=== PATIENT | female | born 1995 ===

== ENCOUNTER 2017-07-13 23:33 | Emergency (ER) | payer SELFPAY ==
[2017-07-13 23:45] VITALS: BP 126/72; PULSE 73; RESP 16; TEMP 98.4; O2SAT 100
--- NOTE | 2017-07-14 01:04 | C.PDOC ---
History Of Present Illness 22 year old female presents to the ER after she got her right thumb caught in a vault door at work. Denies weakness or numbness. Time Seen by Provider: 07/13/17 23:50 Chief Complaint (Nursing): Upper Extremity Problem/Injury History Per: Patient History/Exam Limitations: no limitations Onset/Duration Of Symptoms: Hrs Current Symptoms Are (Timing): Still Present Exacerbating Factor(s): Strenuous Use Of Affected Area Recent travel outside of the [place]: No Past Medical History Reviewed: Historical Data, Nursing Documentation, Vital Signs Vital Signs: Last Vital Signs Temp 98.4 F 07/13/17 23:39 Pulse 73 07/13/17 23:39 Resp 16 07/13/17 23:39 BP 126/72 07/13/17 23:39 Pulse Ox 100 07/14/17 03:16 - Medical History PMH: No Chronic Diseases Family History: States: Unknown Family Hx - Social History Hx Alcohol Use: No Hx Substance Use: No - Immunization History Hx Influenza Vaccination: No Hx Pneumococcal Vaccination: No Review Of Systems Musculoskeletal: Positive for: Hand Pain Neurological: Negative for: Weakness, Numbness Physical Exam - Physical Exam Appears: Non-toxic, No Acute Distress Skin: Warm, Dry Head: Atraumatic, Normacephalic Eye(s): bilateral: Normal Inspection Extremity: Capillary Refill (<2 seconds), No Deformity, No Swelling (of right thumb), Other (small subungual hematoma to base of nail of right thumb(< 1/3). ROM of thumb causes pain.) Pulses: Left Radial: Normal, Right Radial: Normal Neurological/Psych: Oriented x3, Normal Speech, Normal Motor, Normal Sensation ED Course And Treatment O2 Sat by Pulse Oximetry: 100 (Room air) Pulse Ox Interpretation: Normal - Other Rad Right Thumb x-ray X-Ray: Interpreted by Me, Viewed By Me Interpretation: No acute fractures or dislocations. Progress Note: Right thumb x-ray ordered, results were negative. Motrin administered and ice pack applied. Patient reports improvement of pain and is resting comfortably in no acute distress. Will discharge home with Rx and instructions to follow up with PMD for further evaluation or return to ER if symptoms worsen. 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 - Scribe Statement The provider has reviewed the documentation as recorded by the Scribe Sam Clark All medical record entries made by the Ayseibailyn were at my direction and personally dictated by me. I have reviewed the chart and agree that the record accurately reflects my personal performance of the history, physical exam, medical decision making, and the department course for this patient. I have also personally directed, reviewed, and agree with the discharge instructions and disposition.
--- NOTE | 2017-07-14 08:07 | RAD ---
PROCEDURE: Right Thumb radiographs. HISTORY: r/o f COMPARISON: None. TECHNIQUE: AP radiograph of the right hand, as well as spot oblique and lateral images of thumb were obtained. FINDINGS: RIGHT THUMB: Normal right thumb, without fracture or focal lesion. Remainder of the right hand (as seen on the AP view) grossly unremarkable. JOINTS: Normal. SOFT TISSUES: Normal. OTHER FINDINGS: None. IMPRESSION: Normal right thumb radiographs.
== END 2017-07-14 01:09 | disposition home or self-care (01) ==
LOC: C.ER 23:33
DX: S60.111A Contusion of right thumb with damage to nail, initial encounter (principal); W23.0XXA Caught, crushed, jammed, or pinched between moving objects, initial encounter; Y92.89 Other specified places as the place of occurrence of the external cause; Y99.0 Civilian activity done for income or pay

== ENCOUNTER 2017-08-14 15:48 | Emergency (ER) | payer OTHER, MEDICAID ==
[2017-08-14 16:48] VITALS: BMI 32.0
[2017-08-14 16:55] VITALS: TEMP 98.5
[2017-08-14 17:52] LABS: HCG,QUALITATIVE URINE NEGATIVE (NEGATIVE)
[2017-08-14 17:55] LABS: SQUAMOUS EPITHIAL 8 /hpf (0-5); URINE BACTERIA RARE (<OCC); URINE BILIRUBIN NEGATIVE (NEGATIVE); URINE BLOOD 1+ (NEGATIVE); URINE CLARITY Hazy (Clear); URINE COLOR Yellow (YELLOW); URINE GLUCOSE (UA) NORMAL (Normal); URINE LEUKOCYTE ESTERASE NEG Leu/uL (Negative); URINE NITRATE NEGATIVE (NEGATIVE); URINE PROTEIN NEGATIVE (NEGATIVE); URINE UROBILINOGEN NORMAL mg/dL (0.2-1.0)
--- NOTE | 2017-08-14 17:56 | C.PDOC ---
History Of Present Illness <Bella Jay - Last Filed: 08/14/17 18:53> <Good Calvillo DO - Last Filed: 08/14/17 23:17> CC:"pelvic pain" HPI: 22 year old female with no past medical history presents to the ED with pelvic pain. Patient states the pain started 2 days ago and it comes and goes. She states the pain is a cramping pain and currently an 8/10. Patient states she has not taken any medication for the pain. Patient also states she has noticed some blood in her urine. She denies seeing clots in her urine. She states she had a fever last night. In addition she has had vaginal odor, vaginal itching and increase in urinary frequency. She denies pain during urination. She states her FDLP 08/05/17. She denies being sexually active or having an STD in the past. 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 denies: Nausea, Vomiting , Diarrhea, Chest Pain, Constipation Alleviating Factors: None <Bella Jay - Last Filed: 08/14/17 18:53> <Good Calvillo DO - Last Filed: 08/14/17 23:17> Chief Complaint (Nursing): Female Genitourinary Past Medical History - Medical History PMH: No Chronic Diseases Family History: States: Unknown Family Hx - Social History Hx Alcohol Use: No Hx Substance Use: No - Immunization History Hx Tetanus Toxoid Vaccination: No Hx Influenza Vaccination: No Hx Pneumococcal Vaccination: No <Bella Jay - Last Filed: 08/14/17 18:53> Vital Signs: Last Vital Signs Temp 98.5 F 08/14/17 16:51 Pulse 78 08/14/17 19:03 Resp 16 08/14/17 19:03 BP 119/78 08/14/17 19:03 Pulse Ox 98 08/14/17 19:03 Review Of Systems Constitutional: Positive for: Fever, Chills Cardiovascular: Negative for: Chest Pain, Palpitations Respiratory: Negative for: Cough, Shortness of Breath Gastrointestinal: Negative for: Nausea, Vomiting, Abdominal Pain Genitourinary: Positive for: Frequency, Hematuria, Pelvic Pain, Other (vaginal odor; vaginal itching ). Negative for: Dysuria, Vaginal Discharge, Vaginal Bleeding <Bella Jay - Last Filed: 08/14/17 18:53> Physical Exam - Physical Exam Appears: Well, No Acute Distress Skin: Normal Color Head: Atraumatic, Normacephalic Eye(s): bilateral: Normal Inspection, PERRL, EOMI Oral Mucosa: Moist Cardiovascular: Rhythm Regular, No Murmur Respiratory: Normal Breath Sounds, No Decreased Breath Sounds, No Accessory Muscle Use, No Stridor, No Wheezing Gastrointestinal/Abdominal: Bowel Sounds (normal), Soft, Tenderness (pelvic tenderness ), No Distention, No Guarding Neurological/Psych: Oriented x3, Normal Speech, Normal Cognition <Bella Jay - Last Filed: 08/14/17 18:53> ED Course And Treatment - Laboratory Results Result Diagrams: 08/14/17 18:05 08/14/17 18:05 O2 Sat by Pulse Oximetry: 100 <Bella Jay - Last Filed: 08/14/17 18:53> - Laboratory Results Result Diagrams: 08/14/17 18:05 08/14/17 18:05 <Good Calvillo DO - Last Filed: 08/14/17 23:17> Medical Decision Making <Bella Jay - Last Filed: 08/14/17 18:53> <Good Calvillo DO - Last Filed: 08/14/17 23:17> Medical Decision Making: Pelvic pain - CBC and CMP: WNL - UA negative New Medications: Metronidazole 500mg one table twice a day for 7 days Motrin 400mg every 6 hours as needed for pain. Please follow up with your primary care doctor in 1-2 weeks. Return to the ED if symptoms return or worsen. (Bella Jay) Disposition Discussed With : Good Calvillo DO - Disposition Disposition Time: 18:56 <Bella Jay - Last Filed: 08/14/17 18:53> - Disposition Disposition Time: 18:30 <Good Calvillo DO - Last Filed: 08/14/17 23:17> - Disposition Referrals: [facility], [Non-Staff] - Disposition: HOME/ ROUTINE Condition: GOOD Additional Instructions: Thank you for letting us take care of you today. The emergency medical care you received today was directed at your acute symptoms. If you were prescribed any medication, please fill it and take as directed. It may take several days for your symptoms to resolve. Return to the Emergency Department if your symptoms worsen, do not improve, or if you have any other problems. Please contact your doctor or call one of the physicians/clinics you have been referred to that are listed on the Patient Visit Information form that is included in your discharge packet. Bring any paperwork you were given at discharge with you along with any medications you are taking to your follow up visit. Our treatment cannot replace ongoing medical care by a primary care provider (PCP) outside of the emergency department. Thank you for allowing the [facility] team to be part of your care today. Metronidazole 500mg one table twice a day for 7 days Motrin 400mg every 6 hours as needed for pain. Please follow up with your primary care doctor in 1-2 weeks. Return to the ED if symptoms return or worsen. 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 / has examined the patient and agrees with the treatment plan. <Bella Jay - Last Filed: 08/14/17 18:53>
[2017-08-14 18:09] LABS: BASO % 0.3 % (0.0-2.0); EOS # 0.3 K/uL (0.0-0.7); EOS % 2.9 % (0.0-4.0); HEMOGLOBIN 12.8 g/dL (11.0-16.0); LYMPH # 3.5 K/uL (1.0-4.3); LYMPH % 32.4 % (20.0-40.0); MEAN CORPUSCULAR HEMOGLOBIN 27.7 pg (27.0-31.0); MEAN CORPUSCULAR HGB CONC 34.2 g/dL (33.0-37.0); MEAN PLATELET VOLUME 6.9 fL (7.2-11.7); MONO # 0.7 K/uL (0.0-0.8); MONO % 6.2 % (0.0-10.0); NEUT # 6.4 K/uL (1.8-7.0); NEUT % 58.2 % (50.0-75.0); RBC 4.62 Mil/uL (3.80-5.20); RED CELL DISTRIBUTION WIDTH 13.7 % (11.5-14.5); WHITE BLOOD COUNT 10.9 K/uL (4.8-10.8)
[2017-08-14 18:21] LABS: ALT/SGPT 70 U/L (9-52); AST/SGOT 39 U/L (14-36); BLOOD UREA NITROGEN 11 mg/dL (7-17); CALCIUM 8.8 mg/dl (8.6-10.4); GFR AFRICAN-AMERICAN > 60; GFR NON-AFRICAN AMERICAN > 60; LIPASE 118 U/L (23-300)
[2017-08-14 19:04] VITALS: BP 119/78; PULSE 78; RESP 16; O2SAT 98
== END 2017-08-14 19:03 | disposition home or self-care (01) ==
LOC: C.ER 15:48
DX: N76.0 Acute vaginitis (principal)

== ENCOUNTER 2017-10-25 21:44 | Emergency (ER) | payer MEDICAID ==
[2017-10-25 21:44] VITALS: BMI 32.0
[2017-10-25 22:01] VITALS: RESP 16
[2017-10-25 22:15] LABS: HCG,QUALITATIVE URINE NEGATIVE (NEGATIVE)
[2017-10-25 22:16] LABS: URINE BILIRUBIN NEGATIVE (NEGATIVE); URINE BLOOD 1+ (NEGATIVE); URINE CLARITY Clear (Clear); URINE COLOR Straw (YELLOW); URINE GLUCOSE (UA) NORMAL (Normal); URINE LEUKOCYTE ESTERASE NEG Leu/uL (Negative); URINE PROTEIN NEGATIVE (NEGATIVE); URINE UROBILINOGEN NORMAL mg/dL (0.2-1.0)
[2017-10-25 22:19] LABS: SQUAMOUS EPITHIAL 2 /hpf (0-5)
[2017-10-25] MEDS ORDERED: Alum-Mag Hydrox-Simethicone Susp (30 mL) PO STA (22:22)
--- NOTE | 2017-10-25 22:44 | C.PDOC ---
History Of Present Illness 22 year old female presents to the ED for evaluation of vague abdominal discomfort, episode of vomiting and two loose stools which began today. Patient states she ate from [employer] yesterday. Patient was evaluated in this ED on 08/14 and underwent workup for vaginal discomfort, which she states has since resolved. Patient denies fever, chills, and nausea at this time. Time Seen by Provider: 10/25/17 22:09 Chief Complaint (Nursing): Abdominal Pain History Per: Patient History/Exam Limitations: no limitations Onset/Duration Of Symptoms: Hrs Current Symptoms Are (Timing): Still Present Location Of Pain/Discomfort: Diffuse Quality Of Discomfort: "Pain" Associated Symptoms: Vomiting, Other (loose stools ). denies: Fever, Chills Last Bowel Movement: Today Additional History Per: Patient Abnormal Vaginal Bleeding: No Past Medical History Reviewed: Historical Data, Nursing Documentation, Vital Signs Vital Signs: Last Vital Signs Temp 98.1 F 10/25/17 21:59 Pulse 58 L 10/25/17 21:59 Resp 16 10/25/17 21:59 BP 136/82 10/25/17 21:59 Pulse Ox 99 10/25/17 22:47 - Medical History PMH: No Chronic Diseases Surgical History: No Surg Hx Family History: States: Unknown Family Hx - Social History Hx Alcohol Use: No Hx Substance Use: No - Immunization History Hx Tetanus Toxoid Vaccination: No Hx Influenza Vaccination: No Hx Pneumococcal Vaccination: No Review Of Systems Constitutional: Negative for: Fever, Chills Gastrointestinal: Positive for: Vomiting, Abdominal Pain, Other (loose stools ) Physical Exam - Physical Exam Appears: Non-toxic, No Acute Distress, Other (obese [place]an female ) Skin: Normal Color, Warm, Dry Head: Atraumatic, Normacephalic Eye(s): bilateral: Normal Inspection Oral Mucosa: Moist Neck: Supple Chest: Symmetrical, No Deformity, No Tenderness Cardiovascular: Rhythm Regular, No Murmur Respiratory: Normal Breath Sounds, No Rales, No Rhonchi, No Wheezing Gastrointestinal/Abdominal: Soft, No Tenderness, No Guarding, No Rebound Extremity: Normal ROM, Capillary Refill (less than 2 seconds ) Neurological/Psych: Oriented x3, Normal Speech, Normal Cognition ED Course And Treatment - Laboratory Results Result Diagrams: 10/26/17 00:10/26/17 00:16 Lab Interpretation: Normal (ua neg.) Urine POC: Negative O2 Sat by Pulse Oximetry: 99 (on RA) Pulse Ox Interpretation: Normal - Radiology CXR: Interpreted by Me CXR Interpretation: Yes: No Acute Disease - Other Rad abd x 2 X-Ray: Interpreted by Me (+FOS) Progress Note: Urinalysis ordered and reviewed. Maalox PO administered. Reevaluation Time: 00:43 Reassessment Condition: Improved Medical Decision Making Medical Decision Making: diet based mostly on fried food and bangladeshi food. +FOS c/w constipation "diarrhea" with full colon, more likely abd colic of constipation. Disposition Doctor Will See Patient In The: Office Counseled Patient/Family Regarding: Studies Performed, Diagnosis - Disposition Disposition: HOME/ ROUTINE Disposition Time: 00:44 Condition: GOOD Forms: [facility] (Singaporean) - Clinical Impression Clinical Impression: Colicky periumbilical abdominal pain - Scribe Statement The provider has reviewed the documentation as recorded by the Scribe (Consuelo Saez) Provider Attestation: All medical record entries made by the Scribe were at my direction and personally dictated by me. I have reviewed the chart and agree that the record accurately reflects my personal performance of the history, physical exam, medical decision making, and the department course for this patient. I have also personally directed, reviewed, and agree with the discharge instructions and disposition.
[2017-10-25] MEDS ORDERED: Sodium Chloride 0.9% 1,000 ML IV ONE (22:55)
[2017-10-25] MEDS ORDERED: Sodium Chloride 0.9% 1,000 ML ONE (23:21)
[2017-10-25] MEDS ORDERED: Alum-Mag Hydrox-Simethicone Susp (30 mL) ONE (23:21)
[2017-10-26 00:27] LABS: BASO % 0.5 % (0.0-2.0); EOS # 0.3 K/uL (0.0-0.7); EOS % 2.7 % (0.0-4.0); HEMOGLOBIN 13.5 g/dL (11.0-16.0); LYMPH # 3.7 K/uL (1.0-4.3); LYMPH % 39.5 % (20.0-40.0); MEAN CELL VOLUME 81.1 fL (81.0-99.0); MEAN CORPUSCULAR HGB CONC 34.5 g/dL (33.0-37.0); MEAN PLATELET VOLUME 7.3 fL (7.2-11.7); MONO # 0.6 K/uL (0.0-0.8); MONO % 6.1 % (0.0-10.0); NEUT # 4.9 K/uL (1.8-7.0); NEUT % 51.2 % (50.0-75.0); NRBC % 0.1 % (0.0-2.0); RBC 4.84 Mil/uL (3.80-5.20); RED CELL DISTRIBUTION WIDTH 13.7 % (11.5-14.5); WHITE BLOOD COUNT 9.5 K/uL (4.8-10.8)
[2017-10-26 00:34] LABS: ALB/GLOB RATIO 0.9 (1.0-2.1); ALT/SGPT 61 U/L (9-52); AST/SGOT 33 U/L (14-36); BLOOD UREA NITROGEN 13 mg/dL (7-17); GFR AFRICAN-AMERICAN > 60; GFR NON-AFRICAN AMERICAN > 60; LIPASE 117 U/L (23-300)
[2017-10-26] MEDS ORDERED: Magnesium Citrate Oral SOL (300 ml) PO ONE (00:51)
[2017-10-26] MEDS ORDERED: Magnesium Citrate Oral SOL (300 ml) ONE (01:08)
[2017-10-26 01:13] VITALS: BP 124/79; PULSE 62; TEMP 98.2; O2SAT 98
--- NOTE | 2017-10-26 08:40 | RAD ---
PROCEDURE: Radiographs of the chest and abdomen (obstructive series) HISTORY: abd pain COMPARISON: No prior. TECHNIQUE: AP radiograph of the chest, with upright and supine radiographs of the abdomen. FINDINGS: CHEST: Lungs: Clear. Cardiovascular: Normal size heart. No pulmonary vascular congestion. Pleura: No pleural fluid. No pneumothorax. Other findings: None. ABDOMEN AND PELVIS: Bowel: Mild retained feces. No evidence of bowel obstruction. Free air: None. Bones: Unremarkable. Other findings: None. IMPRESSION: Mild retained feces. No evidence of bowel obstruction
== END 2017-10-26 01:13 | disposition home or self-care (01) ==
LOC: C.ER 21:44
DX: R10.33 Periumbilical pain (principal)
CPT/HCPCS: 74022; 80053; 81001; 83690; 84703; 85025; 96361; 96374; 99284; J1885; J7040

== ENCOUNTER 2017-11-01 21:09 | Emergency (ER) | payer MEDICAID ==
[2017-11-01 21:10] VITALS: BMI 32.0
--- NOTE | 2017-11-01 21:41 | C.PDOC ---
History Of Present Illness Patient presents with burning sensation in her chest, nausea and vomiting after eating some food from the [facility]. States the pain radiates into her left shoulder. No f/c. Also states that her menses is 2 months late. decreased po intake. Contrary to the initial triage note, patient denies any chest pain. Time Seen by Provider: 11/01/17 21:41 Chief Complaint (Nursing): Chest Pain History Per: Patient History/Exam Limitations: no limitations Onset/Duration Of Symptoms: Days (3) Current Symptoms Are (Timing): Still Present Context: Food Severity: Moderate Pain Scale Rating Of: 4 Quality: Burning, Aching Associated Symptoms: Nausea. denies: Dyspnea Exacerbating Factors: None Alleviating Factors: None Recent travel outside of the [place]: No Additional History Per: Patient, Family Past Medical History Reviewed: Historical Data, Nursing Documentation, Vital Signs Vital Signs: Last Vital Signs Temp 97.9 F 11/01/17 21:15 Pulse 98 H 11/01/17 21:15 Resp 20 11/01/17 21:15 BP 124/77 11/01/17 21:15 Pulse Ox 98 11/01/17 22:26 Family History: States: No Known Family Hx - Social History Hx Alcohol Use: No Hx Substance Use: No - Immunization History Hx Tetanus Toxoid Vaccination: No Hx Influenza Vaccination: No Hx Pneumococcal Vaccination: No Review Of Systems Constitutional: Negative for: Fever, Chills Eyes: Negative for: Redness ENT: Negative for: Throat Pain Cardiovascular: Negative for: Chest Pain Respiratory: Negative for: Shortness of Breath Gastrointestinal: Positive for: Nausea, Vomiting, Abdominal Pain Genitourinary: Negative for: Dysuria Musculoskeletal: Negative for: Back Pain Skin: Negative for: Rash Neurological: Negative for: Weakness Psych: Negative for: Anxiety Physical Exam - Physical Exam Appears: Non-toxic Skin: Warm, Dry Head: Normacephalic Eye(s): bilateral: Normal Inspection Oral Mucosa: Moist Neck: Supple Chest: Symmetrical Cardiovascular: Rhythm Regular Respiratory: No Rales, No Rhonchi, No Wheezing Gastrointestinal/Abdominal: Soft, Tenderness (diffuse), Distention, No Guarding , No Hernia Back: No CVA Tenderness Extremity: Normal ROM Extremity: Bilateral: Atraumatic Neurological/Psych: Oriented x3 Gait: Steady ED Course And Treatment - Laboratory Results Result Diagrams: 11/01/17 22:54 11/01/17 22:54 ECG: Interpreted By Me, Viewed By Me ECG Rhythm: Sinus Rhythm (98), Nonspecific Changes O2 Sat by Pulse Oximetry: 98 Pulse Ox Interpretation: Normal - Radiology CXR: Interpreted by Me, Viewed By Me CXR Interpretation: No: Infiltrates, Fracture, Pnemothorax Reevaluation Time: 00:22 Reassessment Condition: Improved Disposition Counseled Patient/Family Regarding: Studies Performed, Diagnosis, Need For Followup, Rx Given - Disposition Referrals: [facility] [Outside] [facility] [Outside] Disposition: HOME/ ROUTINE Disposition Time: 00:22 Condition: FAIR Additional Instructions: Please return if symptoms recur Prescriptions: Pantoprazole Sodium [Protonix] 40 mg PO DAILY #15 ect Instructions: Acid Reflux (Gastroesophageal Reflux Disease) in Adults Forms: [facility] (Cayman Islander) - Clinical Impression Clinical Impression: Abdominal pain, GERD (gastroesophageal reflux disease)
[2017-11-01] MEDS ORDERED: Sodium Chloride 0.9% 1,000 ML IV ONE (22:16)
[2017-11-01 22:57] LABS: BASO # 0.1 K/uL (0.0-0.2); BASO % 0.7 % (0.0-2.0); EOS # 0.6 K/uL (0.0-0.7); EOS % 4.9 % (0.0-4.0); HEMOGLOBIN 13.3 g/dL (11.0-16.0); LYMPH # 4.4 K/uL (1.0-4.3); LYMPH % 35.1 % (20.0-40.0); MEAN CELL VOLUME 82.2 fL (81.0-99.0); MEAN CORPUSCULAR HEMOGLOBIN 27.9 pg (27.0-31.0); MEAN PLATELET VOLUME 7.9 fL (7.2-11.7); MONO # 0.7 K/uL (0.0-0.8); MONO % 5.5 % (0.0-10.0); NEUT # 6.7 K/uL (1.8-7.0); NEUT % 53.8 % (50.0-75.0); NRBC % 0.1 % (0.0-2.0); RBC 4.76 Mil/uL (3.80-5.20); RED CELL DISTRIBUTION WIDTH 13.9 % (11.5-14.5); WHITE BLOOD COUNT 12.5 K/uL (4.8-10.8)
[2017-11-01 23:01] LABS: SQUAMOUS EPITHIAL 2 /hpf (0-5); URINE BILIRUBIN NEGATIVE (NEGATIVE); URINE BLOOD 2+ (NEGATIVE); URINE CLARITY Clear (Clear); URINE COLOR Yellow (YELLOW); URINE GLUCOSE (UA) NORMAL (Normal); URINE LEUKOCYTE ESTERASE NEG Leu/uL (Negative); URINE PROTEIN NEGATIVE (NEGATIVE); URINE UROBILINOGEN NORMAL mg/dL (0.2-1.0)
[2017-11-01 23:07] LABS: HCG,QUALITATIVE URINE NEGATIVE (NEGATIVE)
[2017-11-01] MEDS ORDERED: Sodium Chloride 0.9% 1,000 ML ONE (23:17)
[2017-11-01 23:22] LABS: ALB/GLOB RATIO 0.9 (1.0-2.1); ALT/SGPT 46 U/L (9-52); AST/SGOT 45 U/L (14-36); BLOOD UREA NITROGEN 14 mg/dL (7-17); CALCIUM 8.7 mg/dl (8.6-10.4); GFR AFRICAN-AMERICAN > 60; GFR NON-AFRICAN AMERICAN > 60; LIPASE 123 U/L (23-300)
[2017-11-02 00:49] VITALS: BP 105/71; PULSE 80; RESP 18; TEMP 98.2; O2SAT 99
--- NOTE | 2017-11-02 16:17 | CARD ---
APPROVED REPORT EKG Measurement Heart [id number] <Conclusion> Normal sinus rhythm Normal ECG
== END 2017-11-02 00:51 | disposition home or self-care (01) ==
LOC: C.ER 21:09
DX: K21.9 Gastro-esophageal reflux disease without esophagitis (principal); R10.9 Unspecified abdominal pain
CPT/HCPCS: 80053; 81001; 83690; 84703; 85025; 93005; 96361; 96374; 96375; 99284; J1885; J2405; J7040

== ENCOUNTER 2018-01-02 18:42 | Inpatient (IN) | payer MEDICAID ==
[2018-01-02 18:43] VITALS: BMI 32.0
--- NOTE | 2018-01-02 19:31 | C.PDOC ---
History Of Present Illness 22 year old female presents to the ED c/o sudden onset CP that started today after leaving from work. Patient also reports she has been feeling depressed for some time now due to some problems with life in general. Patient state she has not been sleeping well or eating. Patient reports having suicidal ideation with no current plan. Patient has attempted in the past tried cutting her wrists 2 months ago. Patient states she wishes not to go home because she thinks she might harm herself at home. Patient denies HI, hallucinations, SOB, fever, chills, nausea, vomit. Chief Complaint (Nursing): Chest Pain History Per: Patient History/Exam Limitations: no limitations Onset/Duration Of Symptoms: Hrs Current Symptoms Are (Timing): Still Present Quality: "Pain" Modifying Factors: None Exacerbating Factors: None Recent travel outside of the [place]: No Additional History Per: Patient Past Medical History Reviewed: Historical Data, Nursing Documentation, Vital Signs Vital Signs: Last Vital Signs Temp 98.5 F 01/02/18 19:31 Pulse 104 H 01/02/18 19:31 Resp 18 01/02/18 19:31 BP 113/63 01/02/18 19:31 Pulse Ox 96 01/02/18 21:28 - Medical History PMH: No Chronic Diseases Surgical History: No Surg Hx Family History: States: Unknown Family Hx - Social History Hx Alcohol Use: No Hx Substance Use: No - Immunization History Hx Tetanus Toxoid Vaccination: No Hx Influenza Vaccination: No Hx Pneumococcal Vaccination: No Review Of Systems Constitutional: Negative for: Fever, Chills Cardiovascular: Negative for: Chest Pain, Palpitations Respiratory: Negative for: Shortness of Breath Gastrointestinal: Negative for: Nausea, Vomiting Skin: Negative for: Rash Psych: Positive for: Depression, Suicidal ideation Physical Exam - Physical Exam Appears: Non-toxic, Other (crying, depressed affect) Skin: Normal Color, Warm, Dry Head: Atraumatic, Normacephalic Eye(s): bilateral: Normal Inspection Oral Mucosa: Moist Neck: Normal ROM, Supple Chest: Symmetrical Cardiovascular: Rhythm Regular Respiratory: Normal Breath Sounds, No Rales, No Rhonchi, No Wheezing Gastrointestinal/Abdominal: Soft, No Tenderness, No Guarding, No Rebound Extremity: Normal ROM, No Tenderness, No Swelling Neurological/Psych: Oriented x3, Normal Speech Gait: Steady ED Course And Treatment - Laboratory Results Result Diagrams: 01/02/18 20:26 01/02/18 20:26 ECG: Interpreted By Me ECG Rhythm: Sinus Rhythm ECG Interpretation: Normal, No Acute Changes Rate From EC (BPM) O2 Sat by Pulse Oximetry: 96 (ON RA) Pulse Ox Interpretation: Normal Medical Decision Making Medical Decision Making: Impression: depression, SI Plan: * Labs * Madai, toxicology negative * UA * Crisis evaluation Disposition - Disposition Disposition: HOSPITALIZED Disposition Time: 22:24 Condition: FAIR - Clinical Impression Clinical Impression: Suicidal ideation, Anxiety and depression - Scribe Statement The provider has reviewed the documentation as recorded by the Scribe James Thomason All medical record entries made by the Scribe were at my direction and personally dictated by me. I have reviewed the chart and agree that the record accurately reflects my personal performance of the history, physical exam, medical decision making, and the department course for this patient. I have also personally directed, reviewed, and agree with the discharge instructions and disposition.
[2018-01-02 20:36] LABS: EOS # 0.2 K/uL (0.0-0.7); HEMOGLOBIN 12.9 g/dL (11.0-16.0); NRBC % 0.1 % (0.0-2.0)
[2018-01-02 20:40] LABS: BASO % 0.4 % (0.0-2.0); EOS % 1.8 % (0.0-4.0); LYMPH # 3.1 K/uL (1.0-4.3); LYMPH % 32.9 % (20.0-40.0); MEAN CELL VOLUME 82.8 fL (81.0-99.0); MEAN CORPUSCULAR HEMOGLOBIN 27.1 pg (27.0-31.0); MEAN CORPUSCULAR HGB CONC 32.7 g/dL (33.0-37.0); MEAN PLATELET VOLUME 7.8 fL (7.2-11.7); MONO # 0.5 K/uL (0.0-0.8); MONO % 5.2 % (0.0-10.0); NEUT # 5.5 K/uL (1.8-7.0); NEUT % 59.7 % (50.0-75.0); RBC 4.76 Mil/uL (3.80-5.20); RED CELL DISTRIBUTION WIDTH 13.3 % (11.5-14.5); WHITE BLOOD COUNT 9.3 K/uL (4.8-10.8)
[2018-01-02 20:42] LABS: CALCIUM 8.8 mg/dl (8.6-10.4); GFR AFRICAN-AMERICAN > 60; GFR NON-AFRICAN AMERICAN > 60
[2018-01-02 20:43] LABS: SQUAMOUS EPITHIAL 12 /hpf (0-5); URINE BACTERIA RARE (<OCC); URINE BILIRUBIN NEGATIVE (NEGATIVE); URINE BLOOD 1+ (NEGATIVE); URINE CLARITY Hazy (Clear); URINE COLOR Yellow (YELLOW); URINE GLUCOSE (UA) NORMAL (Normal); URINE LEUKOCYTE ESTERASE 1+ Leu/uL (Negative); URINE PROTEIN NEGATIVE (NEGATIVE)
[2018-01-02 20:45] LABS: BARBITURATES, UR NEGATIVE (NEGATIVE); BENZODIAZEPINES, UR NEGATIVE (NEGATIVE); OPIATES, UR NEGATIVE (NEGATIVE); PHENCYCLIDINE, UR NEGATIVE (NEGATIVE)
[2018-01-02 21:05] LABS: ALBUMIN 4.3 g/dL (3.5-5.0); ALT/SGPT 67 U/L (9-52); AST/SGOT 51 U/L (14-36); BLOOD UREA NITROGEN 12 mg/dL (7-17)
--- NOTE | 2018-01-02 22:27 | PCM.BM ---
<Berenice Damon - Last Filed: 01/02/18 22:16> Treatment Plan Problems - Problems identified on initial assessmt Suicidal ideation Date Initiated: 01/02/18 Time Initiated: 22:35 Assessment reference: NA Status: Active Treatment assets and liabiliti Patient Assests: cooperative, ADL independent, good support system, negotiates basic needs - Milieu Protocol Maintain good personal hygiene: daily Encourage regular showers, daily Remind patient to perform daily oral care, daily Assist patient to perform ADL's Maintain personal safety: every shift Educate patient to report safety concerns to staff, every shift Monitor environment for contraband/sharps Medication safety: Monitor for expected outcome, potential side effects: every shift, Assess barriers to learning: every shift, Assess readiness for medication education: every shift <Claudia Marquez - Last Filed: 01/04/18 12:16> - Diagnosis (1) Anxiety and depression Status: Acute Interventions: 01/04/18 12:16 * Assess/adjust medications daily and /or as needed * See patient on an individual basis 7x/week to assess symptoms of depression * Monitor for side effects & effectiveness of medications * <Alanna Abarca - Last Filed: 01/04/18 17:07> Family Contact Family involvement: Patient does not wish Family/SO involvement Family contact: Patient declines to allow family contact at present - Goals for Treatment Patient goals for treatment: "I want to go to an outpatient program." Discharge/Continuing Care - Education Needs Education Needs: Patient Medication, Patient Diagnosis/Disease Process, Patient Coping Skills - Discharge Discharge Criteria: Free of Suicidal thoughts, Normal sleep pattern, Ability to care for self, Reduction of target symptoms Discharge to:: Home, With Family - Treatment Team Participation Discussed with Family/SO: No Was Patient/Family/SO present at Treatment Team Meeting: Yes
[2018-01-03 06:37] VITALS: RESP 20
--- NOTE | 2018-01-03 22:54 | PCM.PSYCH ---
Initial Psychiatric Evaluation - Initial Psychiatric Evaluation Type of Admission: Voluntary Legal Status: Capacity Current Medications: Active Medications Generic Name Dose Route Start Last Admin Trade Name Freq PRN Reason Stop Dose Admin Hydroxyzine HCl 50 mg 01/03/18 02:41 01/03/18 21:39 Atarax PO 50 mg Q8 PRN Administration Anxiety Pneumococcal Polyvalent Vaccine 0.5 ml 01/05/18 10:00 Pneumovax 23 Vaccine IM 01/05/18 10:01 .ONCE ONE Trazodone HCl 50 mg 01/03/18 02:40 01/03/18 21:39 Desyrel PO 50 mg HS PRN Administration Insomnia Past Psychiatric History - Past Psychiatric History Pertinent Medical Hx (Current Medical&Sleep Prob, Allergies): Allergies Allergy/AdvReac Type Severity Reaction Status Date / Time No Known Allergies Allergy Verified 11/01/17 21:27 No Known Home Med 01/02/18
[2018-01-04 06:14] VITALS: TEMP 97.7; O2SAT 100
[2018-01-04 16:01] VITALS: BP 125/78; PULSE 58
--- NOTE | 2018-01-05 05:33 | PCM.PYCHDC ---
Mental Status Examination - Mental Status Examination Orientation: Person, Place, Situation, Time Memory: Intact Mood: Neutral Affect: Constricted Speech: Soft Attention: WNL Concentration: WNL Association: WNL Fund of Knowledge: WNL Formal Thought Process: No Impairment Description of patient's judgement and insight: good, fair Psychotic Thoughts and Behaviors: denies any AVH Suicidal Ideation: No Current Homicidal Ideation?: No Discharge Summary - Discharge Note Consultations:: List each consultation separately and include: 1. Reason for request. 2. Findings. 3. Follow-up Summary of Hospital Course include:: 1. Description of specific treatment plan utilized for patients during their course of treatmen. 2. Summarize the time- course for resolution of acute symptoms and/or regressed behaviors. 3. Describe issues identified and worked on during hospitalization. 4. Describe medication utilized. 5. Describe medical problems identified and treated. 6. Reassessment of suicide risk - Diagnosis (1) Anxiety and depression Current Visit: Yes Status: Acute - Final Diagnosis (DSM 5) Condition upon Discharge: FAIR Disposition: HOME/ ROUTINE Prescriptions/Medication Reconciliation: Sertraline [Zoloft] 50 mg PO DAILY #30 tab traZODone [Desyrel] 50 mg PO HS PRN #30 tab PRN Reason: Insomnia - Smoking Cessation Smoking Cessation Medication prescribed: No - Antipsychotic Medications Pt discharged on 2 or more routine antipsychotic medications: No
--- NOTE | 2018-01-05 05:34 | PCM.PYCHPN ---
Psychiatric Progress Note - Psychiatric Progress Note Patient seen today, length of contact: 15 min Patient Chief Complaint: I am feeling fine.' Problems Identified/Issues Discussed: Patient seen and evaluated, chart reviewed and discussed with the nurse. She reports some improvement in her depressed mood, sleep and appetite. She denies any AVH or any paranoia. She spoke with her family and family is nichole for her to come back. Patient is compliant with medications and denies any side effects. Symptoms are improving but need more time to stabilize. Support and psychoeducation given. Medication Change: Yes (Zoloft) Medical Record Reviewed: Yes Mental Status Examination - Cognitive Function Orientation: Person, Place, Situation, Time Memory: Intact Attention: WNL Concentration: WNL Association: WNL Fund of Knowledge: Poor - Mood Mood: Anxious - Affect Affect: Constricted - Speech Speech: Soft - Formal Thought Process Formal Thought Process: No Impairment - Suicidal Ideation Suicidal Ideation: No - Homicidal Ideation Homicidal Ideation: No Goal/Treatment Plan - Goal/Treatment Plan Need for Continued Stay: Discharge may exacerbated symptoms Progress Toward Problem(s) and Goals/Treatment Plan: 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
[2018-01-05] MEDS ORDERED: Pneumococcal 23-Valent Vaccine IM ONE (10:00)
== END 2018-01-05 06:41 | disposition home or self-care (01) | DRG 430 ==
LOC: C.ER 18:42 → C.5E 21:38 → UNDOADMIN 21:38 → C.9E 21:38 → C.5E 22:28
PROC: GZHZZZZ Group Psychotherapy (ICD-10-PCS; principal; 2018-01-02)
PROC: GZ58ZZZ Individual Psychotherapy, Cognitive-Behavioral (ICD-10-PCS; 2018-01-02)
PROC: GZ56ZZZ Individual Psychotherapy, Supportive (ICD-10-PCS; 2018-01-02)
DX: F33.2 Major depressive disorder, recurrent severe without psychotic features (principal); F41.9 Anxiety disorder, unspecified; R45.851 Suicidal ideations; G47.00 Insomnia, unspecified

== ENCOUNTER 2018-01-28 16:26 | Emergency (ER) | payer MEDICAID ==
[2018-01-28 16:36] VITALS: BMI 32.9
[2018-01-28 16:40] VITALS: BP 115/77; PULSE 71; RESP 18; TEMP 98; O2SAT 97
--- NOTE | 2018-01-28 16:53 | C.PDOC ---
History Of Present Illness 22-year-old female presents to the ER with burn injury to the right forearm and a twisted left ankle that occurred a few hours ago. She states that the burn occurred due to an oil splash at work and the twisted ankle occurred on her way to the hospital when waiting for a lyft. She denies any radiating pain, numbness or weakness. Time Seen by Provider: 01/28/18 16:41 Chief Complaint (Nursing): Abnormal Skin Integrity History Per: Patient History/Exam Limitations: no limitations Onset/Duration Of Symptoms: Hrs Current Symptoms Are (Timing): Still Present Recent travel outside of the [place]: Yes ([place]) Past Medical History Vital Signs: Last Vital Signs Temp 98 F 01/28/18 16:36 Pulse 71 01/28/18 16:36 Resp 18 01/28/18 16:36 BP 115/77 01/28/18 16:36 Pulse Ox 97 01/28/18 16:36 - Medical History PMH: Anxiety, Depression Denies: Diabetes, Hepatitis, HIV, HTN, Seizures, Sexually Transmitted Disease - [facility] Procedures GROUP PSYCHOTHERAPY (01/02/18) INDIVIDUAL PSYCHOTHERAPY, COGNITIVE-BEHAVIORAL (01/02/18) INDIVIDUAL PSYCHOTHERAPY, SUPPORTIVE (01/02/18) Family History: States: Unknown Family Hx - Social History Hx Alcohol Use: No Hx Substance Use: No - Immunization History Hx Tetanus Toxoid Vaccination: No Hx Influenza Vaccination: No Hx Pneumococcal Vaccination: No Review Of Systems Constitutional: Negative for: Fever Gastrointestinal: Negative for: Nausea, Vomiting Musculoskeletal: Positive for: Arm Pain (right forearm (burn)), Foot Pain ( nonfocal left ank/foot) Physical Exam - Physical Exam Appears: Well, Non-toxic, No Acute Distress Skin: Warm, Dry, No Rash Head: Atraumatic Eye(s): bilateral: Normal Inspection Ear(s): Bilateral: Normal Oral Mucosa: Moist Neck: Normal ROM Chest: Symmetrical Cardiovascular: Rhythm Regular, No Murmur Respiratory: Normal Breath Sounds, No Rales, No Rhonchi, No Wheezing Gastrointestinal/Abdominal: Bowel Sounds, Soft, No Tenderness, No Guarding Extremity: Bilateral: Atraumatic, Normal Color And Temperature, Normal ROM Pulses: Left Radial: Normal, Right Radial: Normal Neurological/Psych: Oriented x3, Normal Speech Gait: Steady ED Course And Treatment O2 Sat by Pulse Oximetry: 97 (RA) Pulse Ox Interpretation: Normal Disposition - Disposition Forms: [facility] (Croatian)
--- NOTE | 2018-01-28 17:01 | C.PDOC ---
History Of Present Illness 22-year-old female presents to the ER with burn injury to the right forearm that occurred 1 hour prior to arrival. She states that the burn occurred due to an oil splash at work. Patient applied cold water with minimal relief. She then accidentally twisted her left ankle on her way to the hospital when waiting for a lyft. She denies any radiating pain, numbness or weakness. Time Seen by Provider: 01/28/18 16:41 Chief Complaint (Nursing): Abnormal Skin Integrity History Per: Patient History/Exam Limitations: no limitations Onset/Duration Of Symptoms: Hrs Current Symptoms Are (Timing): Still Present Past Medical History Reviewed: Historical Data, Nursing Documentation, Vital Signs Vital Signs: Last Vital Signs Temp 98 F 01/28/18 16:36 Pulse 71 01/28/18 16:36 Resp 18 01/28/18 17:30 BP 115/77 01/28/18 16:36 Pulse Ox 97 01/28/18 17:11 - Medical History PMH: Anxiety, Depression Denies: Diabetes, Hepatitis, HIV, HTN, Seizures, Sexually Transmitted Disease - [facility] Procedures GROUP PSYCHOTHERAPY (01/02/18) INDIVIDUAL PSYCHOTHERAPY, COGNITIVE-BEHAVIORAL (01/02/18) INDIVIDUAL PSYCHOTHERAPY, SUPPORTIVE (01/02/18) Family History: States: Unknown Family Hx - Social History Hx Alcohol Use: No Hx Substance Use: No - Immunization History Hx Tetanus Toxoid Vaccination: No Hx Influenza Vaccination: No Hx Pneumococcal Vaccination: No Review Of Systems Except As Marked, All Systems Reviewed And Found Negative. Constitutional: Negative for: Fever Gastrointestinal: Negative for: Nausea, Vomiting Musculoskeletal: Positive for: Arm Pain (right forearm (burn)), Foot Pain (left ankle/foot pain) Neurological: Negative for: Weakness, Numbness, Other (radiating pain ) Physical Exam - Physical Exam Appears: Well, Non-toxic, No Acute Distress Skin: Warm, No Rash, Other (1st degree burn, bright erythema to right forearm, no blisters) Head: Atraumatic, Normacephalic Eye(s): bilateral: Normal Inspection Oral Mucosa: Moist Neck: Normal ROM Chest: Symmetrical Extremity: Normal ROM, Tenderness (Non-focal tenderness to left ankle), No Deformity, No Swelling Pulses: Left Dorsalis Pedis: Normal, Right Dorsalis Pedis: Normal Neurological/Psych: Oriented x3, Normal Speech Gait: Steady ED Course And Treatment O2 Sat by Pulse Oximetry: 97 (RA) Pulse Ox Interpretation: Normal Medical Decision Making Medical Decision Making: Impression: burn injury to right forearm and twisted left ankle Plan: --Tylenol 650 mg PO --X-Ray left ankle Progress: Ankle xray viewed by me shows no acute fracture or dislocation. Matt bandage and aircast splint applied by CP. Patient instructed to take analgesic and follow up with ortho if the pain persists. Disposition Counseled Patient/Family Regarding: Diagnosis, Need For Followup - Disposition Referrals: [facility] [Outside] [facility] [Outside] [facility] [Outside] Disposition: HOME/ ROUTINE Disposition Time: 20:33 Condition: STABLE Additional Instructions: apply aloe gel or cream to area of burn Take tylenol or motrin for pain Your xray was normal, no fracture. Please apply ice to area 15 minutes three times a day follow up with your primary doctor or clinic for further care Instructions: Skin Infante, Ankle Sprain (DC) Forms: [facility] (Wallisian) - POA Present On Arrival: None - Clinical Impression Clinical Impression: Ankle sprain, First degree burn - Scribe Statement The provider has reviewed the documentation as recorded by the Scribe (Alyssa Brown) All medical record entries made by the Scribe were at my direction and personally dictated by me. I have reviewed the chart and agree that the record accurately reflects my personal performance of the history, physical exam, medical decision making, and the department course for this patient. I have also personally directed, reviewed, and agree with the discharge instructions and disposition.
--- NOTE | 2018-01-28 17:04 | RAD ---
Date of service: 01/28/2018 PROCEDURE: Left Ankle Radiographs. HISTORY: pain s.p injury COMPARISON: None FINDINGS: BONES: Normal. No fracture. JOINTS: Normal. No osteoarthritis. Ankle mortise maintained. Talar dome intact SOFT TISSUES: Normal. OTHER FINDINGS: None. IMPRESSION: Normal left ankle radiographs.
== END 2018-01-28 18:09 | disposition home or self-care (01) ==
LOC: C.ER 16:26
DX: T22.111A Burn of first degree of right forearm, initial encounter (principal); X10.2XXA Contact with fats and cooking oils, initial encounter; Y92.89 Other specified places as the place of occurrence of the external cause; Y99.0 Civilian activity done for income or pay; S93.402A Sprain of unspecified ligament of left ankle, initial encounter; X50.9XXA Other and unspecified overexertion or strenuous movements or postures, initial encounter

== ENCOUNTER 2018-02-28 22:39 | Emergency (ER) | payer MEDICAID ==
[2018-02-28 22:39] VITALS: BMI 32.9
[2018-02-28 22:48] VITALS: TEMP 97.7
[2018-02-28] MEDS ORDERED: Sodium Chloride 0.9% 1,000 ML IV ONE (23:37)
[2018-02-28 23:40] LABS: BASO % 0.4 % (0.0-2.0); EOS # 0.2 K/uL (0.0-0.7); EOS % 2.5 % (0.0-4.0); HEMOGLOBIN 12.8 g/dL (11.0-16.0); LYMPH # 3.3 K/uL (1.0-4.3); LYMPH % 35.2 % (20.0-40.0); MEAN CELL VOLUME 83.6 fL (81.0-99.0); MEAN CORPUSCULAR HEMOGLOBIN 28.2 pg (27.0-31.0); MEAN CORPUSCULAR HGB CONC 33.7 g/dL (33.0-37.0); MEAN PLATELET VOLUME 7.5 fL (7.2-11.7); MONO # 0.5 K/uL (0.0-0.8); MONO % 5.3 % (0.0-10.0); NEUT # 5.3 K/uL (1.8-7.0); NEUT % 56.6 % (50.0-75.0); NRBC % 0.1 % (0.0-2.0); RBC 4.55 Mil/uL (3.80-5.20); RED CELL DISTRIBUTION WIDTH 13.3 % (11.5-14.5); WHITE BLOOD COUNT 9.4 K/uL (4.8-10.8)
[2018-02-28 23:43] LABS: SQUAMOUS EPITHIAL 4 /hpf (0-5); URINE BILIRUBIN NEGATIVE (NEGATIVE); URINE BLOOD 1+ (NEGATIVE); URINE CLARITY Clear (Clear); URINE COLOR Yellow (YELLOW); URINE GLUCOSE (UA) NORMAL (Normal); URINE LEUKOCYTE ESTERASE NEG Leu/uL (Negative); URINE PROTEIN NEGATIVE (NEGATIVE)
[2018-02-28] MEDS ORDERED: Sodium Chloride 0.9% 1,000 ML ONE (23:43)
[2018-02-28 23:52] LABS: ALB/GLOB RATIO 1.1 (1.0-2.1); ALBUMIN 4.1 g/dL (3.5-5.0); ALT/SGPT 46 U/L (9-52); AST/SGOT 30 U/L (14-36); BLOOD UREA NITROGEN 14 mg/dL (7-17); CALCIUM 8.8 mg/dl (8.6-10.4); GFR NON-AFRICAN AMERICAN > 60; LIPASE 131 U/L (23-300)
[2018-03-01 00:16] LABS: BARBITURATES, UR NEGATIVE (NEGATIVE); BENZODIAZEPINES, UR NEGATIVE (NEGATIVE); OPIATES, UR NEGATIVE (NEGATIVE); PHENCYCLIDINE, UR NEGATIVE (NEGATIVE)
[2018-03-01 00:18] LABS: CK-MB 0.76 ng/mL (0.0-3.38)
--- NOTE | 2018-03-01 00:36 | C.PDOC ---
History Of Present Illness 22 year old female presents to the ER with a complaint of left sided chest pain associated with SOB that began tonight. Patient describes the pain to be sharp, nonradiating, and worsening with deep breathing. Patient also complains of lightheadedness with some nausea and vomiting for one week. Denies cough or fever. Time Seen by Provider: 02/28/18 22:42 Chief Complaint (Nursing): Dizziness/Lightheaded History Per: Patient History/Exam Limitations: no limitations Onset/Duration Of Symptoms: Days Current Symptoms Are (Timing): Still Present Seizure Or Post-ictal Symptoms: None Fall Associated With With Symptoms: No Recent travel outside of the [place]: No - Symptoms Of CVA Associated Symptoms: denies: Impaired Speech, Seizure Activity, New Vision Deficit(Left), New Vision Deficit(Right), Decreased Ability To Walk, New Confusion Past Medical History Reviewed: Historical Data, Nursing Documentation, Vital Signs Vital Signs: Last Vital Signs Temp 97.7 F 02/28/18 22:44 Pulse 62 03/01/18 01:00 Resp 20 03/01/18 01:00 BP 111/52 L 03/01/18 01:00 Pulse Ox 98 03/01/18 01:00 - Medical History PMH: Anxiety, Depression Denies: Diabetes, Hepatitis, HIV, HTN, Seizures, Sexually Transmitted Disease - [facility] Procedures GROUP PSYCHOTHERAPY (01/02/18) INDIVIDUAL PSYCHOTHERAPY, COGNITIVE-BEHAVIORAL (01/02/18) INDIVIDUAL PSYCHOTHERAPY, SUPPORTIVE (01/02/18) Family History: States: Unknown Family Hx - Social History Hx Alcohol Use: No Hx Substance Use: No - Immunization History Hx Tetanus Toxoid Vaccination: No Hx Influenza Vaccination: No Hx Pneumococcal Vaccination: No Review Of Systems Except As Marked, All Systems Reviewed And Found Negative. Cardiovascular: Positive for: Chest Pain, Light Headedness Respiratory: Positive for: Shortness of Breath Gastrointestinal: Positive for: Nausea, Vomiting Physical Exam - Physical Exam Appears: Non-toxic, Other (Anxious) Skin: Normal Color, Warm, Dry Head: Atraumatic, Normacephalic Eye(s): bilateral: Normal Inspection Oral Mucosa: Moist Chest: Symmetrical, No Tenderness Cardiovascular: Rhythm Regular (Bradycardic) Respiratory: Normal Breath Sounds, No Rales, No Rhonchi, No Wheezing Gastrointestinal/Abdominal: Soft, No Tenderness Extremity: Normal ROM (x4) Neurological/Psych: Oriented x3, Normal Speech Gait: Steady ED Course And Treatment - Laboratory Results Result Diagrams: 02/28/18 23:37 02/28/18 23:37 ECG: Interpreted By Me, Viewed By Me ECG Rhythm: Sinus Bradycardia ECG Interpretation: Normal Interpretation Of ECG: Normal axis, no acute ST/T wave changes. Rate From EC O2 Sat by Pulse Oximetry: 100 (Room air) Pulse Ox Interpretation: Normal Progress Note: Blood work, CXR, and urinalysis ordered. Zofran and IV fluids administered. Disposition Counseled Patient/Family Regarding: Studies Performed, Diagnosis, Need For Followup - Disposition Referrals: [facility] [Outside] Disposition: HOME/ ROUTINE Disposition Time: 02:25 Condition: STABLE Additional Instructions: FOLLOW UP WITH YOUR DOCTOR OR CLINIC IN 1-2 DAYS RETURN TO ER IF SYMPTOMS WORSEN Forms: [facility] (Belarusian), General Discharge Instructions Print Language: MONTSERRATIAN - Clinical Impression Clinical Impression: Non-cardiac chest pain, Nausea & vomiting - Scribe Statement The provider has reviewed the documentation as recorded by the Scribailyn Clark All medical record entries made by the Ayseibailyn were at my direction and personally dictated by me. I have reviewed the chart and agree that the record accurately reflects my personal performance of the history, physical exam, medical decision making, and the department course for this patient. I have also personally directed, reviewed, and agree with the discharge instructions and disposition.
[2018-03-01 01:02] VITALS: RESP 20
[2018-03-01 02:40] VITALS: BP 104/76; PULSE 78; O2SAT 97
--- NOTE | 2018-03-01 09:26 | RAD ---
Date of service: 03/01/2018 PROCEDURE: CHEST RADIOGRAPH, 1 VIEW HISTORY: SOB COMPARISON: None available. FINDINGS: LUNGS: Clear. PLEURA: No pneumothorax or pleural fluid seen. CARDIOVASCULAR: Normal. OSSEOUS STRUCTURES: No significant abnormalities. VISUALIZED UPPER ABDOMEN: Normal. OTHER FINDINGS: None. IMPRESSION: No active disease.
--- NOTE | 2018-03-03 09:23 | CARD ---
APPROVED REPORT Date of service: 03/01/2018 EKG Measurement Heart [id number] [id number] <Conclusion> Sinus bradycardia Otherwise normal ECG
== END 2018-03-01 02:37 | disposition home or self-care (01) ==
LOC: C.ER 22:39
DX: R07.89 Other chest pain (principal); R11.2 Nausea with vomiting, unspecified
CPT/HCPCS: 71045; 80053; 80324; 80345; 80346; 80349; 80353; 80358; 80361; 81001; 82550; 82553; 83690; 83992; 84484; 84703; 85025; 85378; 93005; 96361; 96374; 99285; J2405; J7030

== ENCOUNTER 2018-04-26 08:24 | Emergency (ER) | payer MEDICAID ==
[2018-04-26 08:24] VITALS: BMI 32.9
[2018-04-26 08:50] VITALS: TEMP 98; O2SAT 100
[2018-04-26] MEDS ORDERED: Sodium Chloride 0.9% 1,000 ML IV ONE (08:50)
[2018-04-26] MEDS ORDERED: Sodium Chloride 0.9% 1,000 ML ONE (09:36)
[2018-04-26 09:37] LABS: BASO % 0.7 % (0.0-2.0); EOS # 0.2 K/uL (0.0-0.7); HEMOGLOBIN 12.5 g/dL (11.0-16.0); LYMPH % 26.6 % (20.0-40.0); MEAN CELL VOLUME 82.7 fL (81.0-99.0); MEAN CORPUSCULAR HEMOGLOBIN 27.9 pg (27.0-31.0); MEAN CORPUSCULAR HGB CONC 33.8 g/dL (33.0-37.0); MEAN PLATELET VOLUME 7.2 fL (7.2-11.7); MONO # 0.5 K/uL (0.0-0.8); MONO % 6.3 % (0.0-10.0); NEUT # 4.7 K/uL (1.8-7.0); NEUT % 63.4 % (50.0-75.0); NRBC % 0.1 % (0.0-2.0); RBC 4.48 Mil/uL (3.80-5.20); RED CELL DISTRIBUTION WIDTH 13.1 % (11.5-14.5); WHITE BLOOD COUNT 7.4 K/uL (4.8-10.8)
[2018-04-26 09:58] LABS: ALB/GLOB RATIO 1.1 (1.0-2.1); ALBUMIN 4.1 g/dL (3.5-5.0); ALT/SGPT 49 U/L (9-52); AST/SGOT 29 U/L (14-36); BLOOD UREA NITROGEN 22 mg/dL (7-17); CALCIUM 8.7 mg/dl (8.6-10.4); GFR NON-AFRICAN AMERICAN > 60
[2018-04-26 10:56] VITALS: BP 110/50; PULSE 71; RESP 18
--- NOTE | 2018-04-26 11:48 | C.PDOC ---
History Of Present Illness 23 y/o female presents to ED with c/o headache "for few weeks". Patient states she has been getting headaches every month for the past 6 months. Patient denies "worse headache of her life", has been seen at ED previously for same and has not followed up. Patient currently denies fever, chills, cough, nausea, vomiting, change in vision or any other complaints at this time. Chief Complaint (Nursing): Headache History Per: Patient History/Exam Limitations: no limitations Onset/Duration Of Symptoms: Days Current Symptoms Are (Timing): Still Present Past Medical History Reviewed: Historical Data, Nursing Documentation, Vital Signs Vital Signs: Last Vital Signs Temp 98.0 F 04/26/18 08:48 Pulse 71 04/26/18 10:55 Resp 18 04/26/18 10:55 BP 110/50 L 04/26/18 10:55 Pulse Ox 100 04/26/18 10:55 - Medical History PMH: Anxiety, Depression Surgical History: No Surg Hx - [facility] Procedures GROUP PSYCHOTHERAPY (01/02/18) INDIVIDUAL PSYCHOTHERAPY, COGNITIVE-BEHAVIORAL (01/02/18) INDIVIDUAL PSYCHOTHERAPY, SUPPORTIVE (01/02/18) Family History: States: No Known Family Hx - Social History Hx Alcohol Use: No Hx Substance Use: No - Immunization History Hx Tetanus Toxoid Vaccination: No Hx Influenza Vaccination: No Hx Pneumococcal Vaccination: No Review Of Systems Constitutional: Negative for: Fever, Chills Eyes: Negative for: Vision Change Respiratory: Negative for: Cough Gastrointestinal: Negative for: Nausea, Vomiting Neurological: Positive for: Headache. Negative for: Weakness, Numbness Physical Exam - Physical Exam Appears: Non-toxic, No Acute Distress Skin: Warm, Dry, No Rash Head: Atraumatic, Normacephalic Eye(s): bilateral: Normal Inspection Oral Mucosa: Moist Neck: Normal ROM, Supple Cardiovascular: Rhythm Regular Respiratory: Normal Breath Sounds, No Rales, No Rhonchi, No Wheezing Gastrointestinal/Abdominal: Soft, No Tenderness, No Guarding, No Rebound Neurological/Psych: Oriented x3, Normal Speech, Normal Cognition, Normal Motor, Normal Sensation ED Course And Treatment - Laboratory Results Result Diagrams: 04/26/18 09:32 04/26/18 09:32 ECG: Interpreted By Me, Viewed By Me ECG Rhythm: Sinus Rhythm Rate From EC (BPM) O2 Sat by Pulse Oximetry: 100 (RA) Pulse Ox Interpretation: Normal Disposition - Disposition Referrals: [facility] [Outside] [facility] [Outside] Disposition: HOME/ ROUTINE Disposition Time: 10:30 Condition: GOOD Additional Instructions: JARED JACOB, thank you for letting us take care of you today. The emergency medical care you received today was directed at your acute symptoms. If you were prescribed any medication, please fill it and take as directed. It may take several days for your symptoms to resolve. Return to the Emergency Department if your symptoms worsen, do not improve, or if you have any other problems. Please contact your doctor or call one of the physicians/clinics you have been referred to that are listed on the Patient Visit Information form that is included in your discharge packet. Bring any paperwork you were given at discharge with you along with any medications you are taking to your follow up visit. Our treatment cannot replace ongoing medical care by a primary care provider outside of the emergency department. Thank you for allowing the [email or web address] team to be part of your care today. Follow up with your primary care doctor or our clinic this week for re- evaluation and further management. Prescriptions: Ibuprofen [Motrin] 600 mg PO Q6 PRN #20 tab PRN Reason: Pain, Moderate (4-7) Instructions: Headache, Adult (DC) Forms: [employer] (Irish), School Excuse - Clinical Impression Clinical Impression: Headache - Scribe Statement The provider has reviewed the documentation as recorded by the Ayseibailyn Garza All medical record entries made by the Ayseibe were at my direction and personally dictated by me. I have reviewed the chart and agree that the record accurately reflects my personal performance of the history, physical exam, medical decision making, and the department course for this patient. I have also personally directed, reviewed, and agree with the discharge instructions and disposition.
--- NOTE | 2018-04-27 12:32 | CARD ---
APPROVED REPORT Date of service: 04/26/2018 EKG Measurement Heart [id number] <Conclusion> Normal sinus rhythm Normal ECG
== END 2018-04-26 10:56 | disposition home or self-care (01) ==
LOC: C.ER 08:24
DX: R51 Headache (principal)
CPT/HCPCS: 80053; 84443; 85025; 85378; 93005; 96361; 96374; 99285; J1885; J7030

== ENCOUNTER 2018-06-01 14:00 | Emergency (ER) | payer MEDICAID ==
[2018-06-01 14:00] VITALS: BMI 32.9
[2018-06-01 14:25] VITALS: RESP 18; TEMP 98.2
--- NOTE | 2018-06-01 14:41 | C.PDOC ---
History Of Present Illness 23 year old [place] female with no chronic medical condition presents to the ED for evaluation of fainting episode a few hours prior to arrival. The patient reports she was in the bank when she had a fainting episode, a bystander prevented her from falling or injuries but she does report neck pain, nausea, and mild headache. The patient notes prior fainting episodes. She states she has been feeling dizzy with headaches all day today, has not had anything to eat today, had a late night, and has been going to bed after 1am. PMD Dr. Zuleta, no prior visits. Denies surgery hx. Last period was x4 months ago, regular home pregnancies have been negative. Denies focal weakness, vomiting, fever, chills, and any other associated symptoms. Time Seen by Provider: 06/01/18 14:37 Chief Complaint (Nursing): Dizziness/Lightheaded History Per: Patient History/Exam Limitations: no limitations Onset/Duration Of Symptoms: Other (prior to arrival ) Current Symptoms Are (Timing): Still Present Past Medical History Reviewed: Historical Data, Nursing Documentation, Vital Signs Vital Signs: Last Vital Signs Temp 98.2 F 06/01/18 14:21 Pulse 62 06/01/18 14:21 Resp 18 06/01/18 14:21 BP 120/81 06/01/18 14:21 Pulse Ox 97 06/01/18 14:21 - Medical History PMH: Anxiety, Depression Denies: Diabetes, Hepatitis, HIV, HTN, Seizures, Sexually Transmitted Disease - [facility] Procedures GROUP PSYCHOTHERAPY (01/02/18) INDIVIDUAL PSYCHOTHERAPY, COGNITIVE-BEHAVIORAL (01/02/18) INDIVIDUAL PSYCHOTHERAPY, SUPPORTIVE (01/02/18) Family History: States: Unknown Family Hx - Social History Hx Alcohol Use: No Hx Substance Use: No - Immunization History Hx Tetanus Toxoid Vaccination: No Hx Influenza Vaccination: Yes Hx Pneumococcal Vaccination: No Review Of Systems Except As Marked, All Systems Reviewed And Found Negative. (as per HPI.) Constitutional: Negative for: Fever, Chills, Weakness Gastrointestinal: Positive for: Nausea. Negative for: Vomiting Musculoskeletal: Positive for: Neck Pain Neurological: Positive for: Headache (mild. ), Other (fainting. ) Physical Exam - Physical Exam Appears: No Acute Distress, Other (tired. ) Skin: Warm, Diaphoretic Head: Atraumatic, Normacephalic Eye(s): bilateral: PERRL, EOMI Oral Mucosa: Moist Lips: Normal Appearing Throat: No Erythema, No Exudate Neck: Normal ROM (full ROM of the neck.), No Midline Cervical Tenderness, No Paracervical Tenderness, Other (tender to palpation of the SCM muscle. ) Lymphatic: No Adenopathy Chest: Symmetrical Cardiovascular: Rhythm Regular, No Murmur Respiratory: Normal Breath Sounds, No Accessory Muscle Use Gastrointestinal/Abdominal: Soft, No Tenderness Back: Normal Inspection, No Decreased ROM Extremity: Normal ROM, No Deformity Neurological/Psych: Oriented x3, Normal Speech, Normal Motor, Normal Sensation, Normal Reflexes ED Course And Treatment ECG Rhythm: Sinus Bradycardia (@54, normal qrs, normal st segments) O2 Sat by Pulse Oximetry: 97 (RA) Pulse Ox Interpretation: Normal - CT Scan/US CT Head Other Rad Studies (CT/US): Read By Radiologist CT/US Interpretation: FINDINGS: HEMORRHAGE: No intracranial hemorrhage. BRAIN: No mass effect or edema. Shay-white matter differentiation appears intact. Please note that MRI with diffusion imaging is more sensitive in the detection of acute ischemic event. VENTRICLES: No hydrocephalus. Cavum septum pellucidum, anatomic variant. CALVARIUM: Unremarkable. PARANASAL SINUSES: Unremarkable as visualized. No significant inflammatory changes. MASTOID AIR CELLS: Unremarkable as visualized. No inflammatory changes. OTHER FINDINGS: Partial opacification bilateral external auditory canals, likely cerumen. IMPRESSION: No acute intracranial pathology identified. Medical Decision Making Medical Decision Making: Impression: fainting. Plan: --CT head w/o contrast. --EKG --HCG Urine. --Urinalysis Differential includes but is not limited to malnutrition, dehydration, vasovagal syncope. Reviewed previous chart. Pt is here multiple times for similar symptoms. Pt has not had previous CT Scan. Accession No. 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 HISTORY: headache syncope COMPARISON: None available. TECHNIQUE: Axial computed tomography images were obtained through the head/brain without intravenous contrast. Radiation dose: Total exam DLP = 1021.91 mGy-cm. This CT exam was performed using one or more of the following dose reduction techniques: Automated exposure control, adjustment of the mA and/or kV according to patient size, and/or use of iterative reconstruction technique. FINDINGS: HEMORRHAGE: No intracranial hemorrhage. BRAIN: No mass effect or edema. Shay-white matter differentiation appears intact. Please note that MRI with diffusion imaging is more sensitive in the detection of acute ischemic event. VENTRICLES: No hydrocephalus. Cavum septum pellucidum, anatomic variant. CALVARIUM: Unremarkable. PARANASAL SINUSES: Unremarkable as visualized. No significant inflammatory changes. MASTOID AIR CELLS: Unremarkable as visualized. No inflammatory changes. OTHER FINDINGS: Partial opacification bilateral external auditory canals, likely cerumen. IMPRESSION: No acute intracranial pathology identified. On reeval pt stable. DW pt findings and plan of care. Lifestyle changes (regular meals and hydration) recommended as well as emphasized need for PMD followup. Disposition - Disposition Referrals: Rissa Salcido [Medical Doctor] - Disposition: HOME/ ROUTINE Disposition Time: 17:28 Condition: STABLE Additional Instructions: REST AND DRINK PLENTY OF HYDRATING FLUIDS TRY TO EAT AT LEAST 3 TIMES A DAY AND TAKE A MULTIVITAMIN DAILY. FOLLOW UP WITH DR SALCIDO BY THE END OF THE WEEK. Instructions: Syncope (Fainting) (DC) Forms: Work Excuse - Clinical Impression Clinical Impression: Syncope - Scribe Statement The provider has reviewed the documentation as recorded by the Scribe (Shawna Hernandez) Provider Attestation: All medical record entries made by the Scribe were at my direction and personally dictated by me. I have reviewed the chart and agree that the record accurately reflects my personal performance of the history, physical exam, medical decision making, and the department course for this patient. I have also personally directed, reviewed, and agree with the discharge instructions and disposition.
[2018-06-01 15:03] LABS: HCG,QUALITATIVE URINE NEGATIVE (NEGATIVE)
[2018-06-01 15:09] LABS: URINE BILIRUBIN NEGATIVE (NEGATIVE); URINE BLOOD 1+ (NEGATIVE); URINE CLARITY Hazy (Clear); URINE COLOR YELLOW (YELLOW); URINE GLUCOSE (UA) Normal (Normal)
[2018-06-01 15:10] LABS: SQUAMOUS EPITHIAL 8 /hpf (0-5); URINE LEUKOCYTE ESTERASE 1+ Leu/uL (Negative); URINE PROTEIN NEGATIVE (NEGATIVE); URINE UROBILINOGEN Normal mg/dL (0.2-1.0)
--- NOTE | 2018-06-01 17:10 | CT ---
Date of service: 06/01/2018 PROCEDURE: CT HEAD WITHOUT CONTRAST. HISTORY: headache syncope COMPARISON: None available. TECHNIQUE: Axial computed tomography images were obtained through the head/brain without intravenous contrast. Radiation dose: Total exam DLP = 1021.91 mGy-cm. This CT exam was performed using one or more of the following dose reduction techniques: Automated exposure control, adjustment of the mA and/or kV according to patient size, and/or use of iterative reconstruction technique. FINDINGS: HEMORRHAGE: No intracranial hemorrhage. BRAIN: No mass effect or edema. Shay-white matter differentiation appears intact. Please note that MRI with diffusion imaging is more sensitive in the detection of acute ischemic event. VENTRICLES: No hydrocephalus. Cavum septum pellucidum, anatomic variant. CALVARIUM: Unremarkable. PARANASAL SINUSES: Unremarkable as visualized. No significant inflammatory changes. MASTOID AIR CELLS: Unremarkable as visualized. No inflammatory changes. OTHER FINDINGS: Partial opacification bilateral external auditory canals, likely cerumen. IMPRESSION: No acute intracranial pathology identified.
[2018-06-01 17:36] VITALS: BP 104/71; PULSE 61
[2018-06-01 23:36] VITALS: O2SAT 97
--- NOTE | 2018-06-02 11:53 | CARD ---
APPROVED REPORT Date of service: 06/01/2018 EKG Measurement Heart [id number] [id number] <Conclusion> Sinus bradycardia Otherwise normal ECG
== END 2018-06-01 17:55 | disposition home or self-care (01) ==
LOC: C.ER 14:00
DX: R55 Syncope and collapse (principal)

== ENCOUNTER 2018-06-02 11:14 | Emergency (ER) | payer MEDICAID ==
[2018-06-02 11:14] VITALS: BMI 32.9
[2018-06-02 11:24] VITALS: O2SAT 98
[2018-06-02] MEDS ORDERED: Sodium Chloride 0.9% 1,000 ML IV ONE (12:00)
[2018-06-02 12:20] LABS: BASO % 0.3 % (0.0-2.0); EOS # 0.1 K/uL (0.0-0.7); EOS % 0.8 % (0.0-4.0); HEMOGLOBIN 13.4 g/dL (11.0-16.0); LYMPH # 1.5 K/uL (1.0-4.3); LYMPH % 15.4 % (20.0-40.0); MEAN CELL VOLUME 82.5 fL (81.0-99.0); MEAN CORPUSCULAR HEMOGLOBIN 27.5 pg (27.0-31.0); MEAN CORPUSCULAR HGB CONC 33.4 g/dL (33.0-37.0); MEAN PLATELET VOLUME 7.2 fL (7.2-11.7); MONO # 0.3 K/uL (0.0-0.8); MONO % 2.7 % (0.0-10.0); NEUT # 7.8 K/uL (1.8-7.0); NEUT % 80.8 % (50.0-75.0); RBC 4.85 Mil/uL (3.80-5.20); RED CELL DISTRIBUTION WIDTH 13.3 % (11.5-14.5); WHITE BLOOD COUNT 9.6 K/uL (4.8-10.8)
[2018-06-02 12:23] LABS: HCG,QUALITATIVE URINE NEGATIVE (NEGATIVE)
--- NOTE | 2018-06-02 12:29 | C.PDOC ---
History Of Present Illness 23 y/o female presents to the ER for evaluation of lower abdominal pain and vomiting which began in the morning today. Patient states that she has headache. Patient reports that she did not have her period for the past few months. She is not sure if she is . Denies having fever, chills, dysuria, hematuria, vaginal bleeding, and vaginal discharge. Time Seen by Provider: 06/02/18 11:43 Chief Complaint (Nursing): Abdominal Pain History Per: Patient History/Exam Limitations: no limitations Onset/Duration Of Symptoms: Days Current Symptoms Are (Timing): Still Present Severity: Moderate Past Medical History Reviewed: Historical Data, Nursing Documentation, Vital Signs Vital Signs: Last Vital Signs Temp 97.8 F 06/02/18 11:16 Pulse 86 06/02/18 11:16 Resp 16 06/02/18 11:16 BP 126/82 06/02/18 11:16 Pulse Ox 98 06/02/18 11:16 - Medical History PMH: Anxiety, Depression Denies: Diabetes, Hepatitis, HIV, HTN, Seizures, Sexually Transmitted Disease Surgical History: No Surg Hx - [facility] Procedures GROUP PSYCHOTHERAPY (01/02/18) INDIVIDUAL PSYCHOTHERAPY, COGNITIVE-BEHAVIORAL (01/02/18) INDIVIDUAL PSYCHOTHERAPY, SUPPORTIVE (01/02/18) Family History: States: No Known Family Hx - Social History Hx Alcohol Use: No Hx Substance Use: No - Immunization History Hx Tetanus Toxoid Vaccination: No Hx Influenza Vaccination: Yes Hx Pneumococcal Vaccination: No Review Of Systems Except As Marked, All Systems Reviewed And Found Negative. Constitutional: Negative for: Fever, Chills Gastrointestinal: Positive for: Vomiting, Abdominal Pain Genitourinary: Negative for: Dysuria, Hematuria, Vaginal Discharge, Vaginal Bleeding Neurological: Positive for: Headache Physical Exam - Physical Exam Appears: Non-toxic, No Acute Distress Skin: Normal Color, Warm, Dry Head: Atraumatic, Normacephalic Eye(s): bilateral: Normal Inspection Nose: Normal Oral Mucosa: Moist Neck: Supple Chest: Symmetrical Cardiovascular: Rhythm Regular Respiratory: Normal Breath Sounds, No Rales, No Rhonchi, No Wheezing Gastrointestinal/Abdominal: Soft, Tenderness (suprapubic tenderness), No Guarding, No Rebound Neurological/Psych: Oriented x3, Normal Speech ED Course And Treatment - Laboratory Results Result Diagrams: 06/02/18 12:15 06/02/18 12:15 Lab Interpretation: Normal Urine POC: Negative O2 Sat by Pulse Oximetry: 98 (RA) Pulse Ox Interpretation: Normal - CT Scan/US No standard instances Other Rad Studies (CT/US): Read By Radiologist, Radiology Report Reviewed CT/US Interpretation: FINDINGS: LOWER THORAX: Unremarkable. LIVER: Unremarkable. No gross lesion or ductal dilatation. GALLBLADDER AND BILE DUCTS: Unremarkable. PANCREAS: Unremarkable. No gross lesion or ductal dilatation. SPLEEN: Unremarkable. ADRENALS: Unremarkable. No mass. KIDNEYS AND URETERS: Unremarkable. No hydronephrosis. No solid mass. VASCULATURE: Unremarkable. No aortic aneurysm. No aortic atherosclerotic calcification or mural plaque present. BOWEL: Unremarkable. No obstruction. No gross mural thickening. APPENDIX: Unremarkable. Normal appendix. PERITONEUM: Unremarkable. No free fluid. No free air. LYMPH NODES: Unremarkable. No enlarged lymph nodes. BLADDER: Unremarkable. REPRODUCTIVE: Normal uterus. BONES: No acute fracture. OTHER FINDINGS: None. IMPRESSION: No evidence of appendicitis. Unremarkable examination. Progress Note: Treated with IVF NSS and toradol. On re-evaluation abdomen soft in no distress Reassessment Condition: Improved Medical Decision Making Medical Decision Making: Plan: --Labs --UA --HCG, Qual. --CT - Abd & Pelv. 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 - Scribe Statement The provider has reviewed the documentation as recorded by the Robert Aguirre Provider Attestation All medical record entries made by the Robert were at my direction and personally dictated by me. I have reviewed the chart and agree that the record accurately reflects my personal performance of the history, physical exam, medical decision making, and the department course for this patient. I have also personally directed, reviewed, and agree with the discharge instructions and disposition.
[2018-06-02 12:30] LABS: SQUAMOUS EPITHIAL 31 /hpf (0-5); URINE BACTERIA RARE (<OCC); URINE BILIRUBIN NEGATIVE (NEGATIVE); URINE BLOOD NEGATIVE (NEGATIVE); URINE CLARITY Hazy (Clear); URINE COLOR Yellow (YELLOW); URINE GLUCOSE (UA) NORMAL (Normal); URINE LEUKOCYTE ESTERASE 3+ Leu/uL (Negative); URINE PROTEIN NEGATIVE (NEGATIVE); URINE UROBILINOGEN NORMAL mg/dL (0.2-1.0)
[2018-06-02 12:35] LABS: ALB/GLOB RATIO 1.1 (1.0-2.1); ALBUMIN 4.5 g/dL (3.5-5.0); ALT/SGPT 56 U/L (9-52); AST/SGOT 35 U/L (14-36); BLOOD UREA NITROGEN 15 mg/dL (7-17); CALCIUM 8.9 mg/dl (8.6-10.4); GFR NON-AFRICAN AMERICAN > 60
[2018-06-02] MEDS ORDERED: Sodium Chloride 0.9% 1,000 ML ONE (12:38)
--- NOTE | 2018-06-02 13:20 | CT ---
Date of service: 06/02/2018 PROCEDURE: CT Abdomen and Pelvis without intravenous contrast HISTORY: Pain COMPARISON: None. TECHNIQUE: Without contrast.. Contrast dose: 0 Radiation dose: Total exam DLP = 947.49 mGy-cm. This CT exam was performed using one or more of the following dose reduction techniques: Automated exposure control, adjustment of the mA and/or kV according to patient size, and/or use of iterative reconstruction technique. FINDINGS: LOWER THORAX: Unremarkable. LIVER: Unremarkable. No gross lesion or ductal dilatation. GALLBLADDER AND BILE DUCTS: Unremarkable. PANCREAS: Unremarkable. No gross lesion or ductal dilatation. SPLEEN: Unremarkable. ADRENALS: Unremarkable. No mass. KIDNEYS AND URETERS: Unremarkable. No hydronephrosis. No solid mass. VASCULATURE: Unremarkable. No aortic aneurysm. No aortic atherosclerotic calcification or mural plaque present. BOWEL: Unremarkable. No obstruction. No gross mural thickening. APPENDIX: Unremarkable. Normal appendix. PERITONEUM: Unremarkable. No free fluid. No free air. LYMPH NODES: Unremarkable. No enlarged lymph nodes. BLADDER: Unremarkable. REPRODUCTIVE: Normal uterus BONES: No acute fracture. OTHER FINDINGS: None. IMPRESSION: No evidence of appendicitis. Unremarkable examination.
[2018-06-02 14:13] VITALS: BP 115/74; PULSE 60; RESP 20; TEMP 98.3
== END 2018-06-02 14:40 | disposition home or self-care (01) ==
LOC: C.ER 11:14
DX: R10.30 Lower abdominal pain, unspecified (principal)
CPT/HCPCS: 74176; 80053; 81001; 84703; 85025; 96361; 96374; 99285; J1885; J7030

== ENCOUNTER 2018-06-24 12:10 | Emergency (ER) | payer MEDICAID ==
[2018-06-24 12:11] VITALS: BMI 32.9
--- NOTE | 2018-06-24 12:23 | C.PDOC ---
History Of Present Illness 23 y/o female with PMH of anxiety and depression presents to the ED c/o left breast masses x 1 month. Masses fluctuate in size, are small, immobile, and tender to touch without associated fluctuance. This morning, patient incidental ly had acute onset of bilateral lower back spasm and pain, worse with moving, making it difficult to walk. Patient states she has had this pain before, approx twice a year, and that it resolves with menthol and rest. Tolerating PO and having BM per baseline. LMP January, patient has history of irregular periods. Pt has no PMD or OBGYN followup. Denies nipple discharge, right breast masses/pain, fever, chills, N/V/D, constipation, vaginal bleeding, vaginal discharge, vaginal odor, pelvic pain, urinary symptoms, bowel/bladder incontinence, saddle anesthesia, SOB, chest pain, cough, congestion, rash, or any other associated symptoms. Time Seen by Provider: 06/24/18 12:25 Chief Complaint (Nursing): Back Pain History Per: Patient Onset/Duration Of Symptoms: Hrs (back pain), Days (breast pain) Past Medical History Reviewed: Historical Data, Nursing Documentation, Vital Signs - Medical History PMH: Anxiety, Depression Denies: Diabetes, Hepatitis, HIV, HTN, Seizures, Sexually Transmitted Disease - [facility] Procedures GROUP PSYCHOTHERAPY (01/02/18) INDIVIDUAL PSYCHOTHERAPY, COGNITIVE-BEHAVIORAL (01/02/18) INDIVIDUAL PSYCHOTHERAPY, SUPPORTIVE (01/02/18) Family History: States: Unknown Family Hx - Social History Hx Alcohol Use: No Hx Substance Use: No - Immunization History Hx Tetanus Toxoid Vaccination: No Hx Influenza Vaccination: Yes Hx Pneumococcal Vaccination: No Review Of Systems Except As Marked, All Systems Reviewed And Found Negative. Constitutional: Negative for: Fever, Chills Eyes: Negative for: Vision Change ENT: Negative for: Nose Congestion, Throat Pain Cardiovascular: Negative for: Chest Pain, Palpitations Respiratory: Negative for: Cough, Shortness of Breath Gastrointestinal: Negative for: Nausea, Vomiting, Abdominal Pain, Diarrhea, Constipation Genitourinary: Positive for: Other (breast pain). Negative for: Dysuria, Frequency, Incontinence, Hematuria, Vaginal Discharge, Vaginal Bleeding, Pelvic Pain Musculoskeletal: Positive for: Back Pain Skin: Negative for: Rash Neurological: Negative for: Weakness, Numbness, Headache, Dizziness Physical Exam - Physical Exam Appears: Well, Non-toxic, No Acute Distress Skin: Normal Color, Warm, Dry Head: Atraumatic, Normacephalic Eye(s): bilateral: Normal Inspection, PERRL, EOMI Nose: Normal Oral Mucosa: Moist Neck: Normal, Normal ROM, Supple Chest: Other (Left breast with 3 small discrete palpable tender masses at 1, 7, and 9 o'clock with small punctate dark overlying follicles; no erythema; no nipple discharge) Cardiovascular: Rhythm Regular Respiratory: Normal Breath Sounds Gastrointestinal/Abdominal: Bowel Sounds (normoactive), Soft, Tenderness (mild suprapubic) Back: Normal Inspection, No CVA Tenderness, No Vertebral Tenderness, Decreased ROM (secondary to muscle spasm), Muscle Spasm (bilateral lumbar paraspinal), Paraspinal Tenderness (bilateral lumbar ) Extremity: Normal ROM, No Tenderness, No Calf Tenderness, Capillary Refill (<2s), No Swelling Extremity: Bilateral: Atraumatic, No Pedal Edema, Normal Color And Temperature, Normal ROM Pulses: Left Radial: Normal, Right Radial: Normal, Left Dorsalis Pedis: Normal, Right Dorsalis Pedis: Normal Neurological/Psych: Oriented x3, Normal Speech, Normal Cognition, Normal Cranial Nerves, Normal Motor, Normal Sensation Gait: With Assistance (secondary to pain) ED Course And Treatment - Laboratory Results Result Diagrams: 06/24/18 13:32 06/24/18 13:32 Lab Interpretation: Normal Urine POC: Negative - Other Rad Transvaginal Ultrasound X-Ray: Read By Radiologist Interpretation: FINDINGS: UTERUS: Measures 6.0 x 3.3 x 4.1 cm. Retroverted. ENDOMETRIUM: Measures 9 mm in diameter. CERVIX: No cervical abnormality identified. RIGHT OVARY: Measures 3.5 x 2.4 x 2.8 cm. Blood flow is demonstrated. LEFT OVARY: Measures 3.4 x 2.2 x 3.2 cm. Blood flow is demonstrated. FREE FLUID: No significant free fluid noted. OTHER FINDINGS: None. IMPRESSION: No acute findings identified. Left Breast Ultrasound X-Ray: Read By Radiologist Interpretation: FINDINGS: Left breast limited: Patient's areas of left breast palpable concern corresponds to 3 parallel complex cystic appearing circumscribed masses nonvascular non shadowing. No thick rims no thick septations. This stability other contents is not known. There may be minimal skin thickening here present. No axillary lymphadenopathy noted. These 3 complex cystic appearing masses are as follows: Next 1 o'clock 7 cm from the nipple a 1.3 x 3.9 x 1.4 cm complex probably cystic superficial collection is noted. Another complex probably cystic superficial collection is seen also at 7 o'clock 7 cm from the nipple measuring 7 x 3 x 9 mm. Another complex probably cystic superficial collection is seen at 9 o'clock 8 cm from the nipple measuring 6 x 3 x 9 mm. I did not have occasion opportunity to physically examined the patient at this setting. IMPRESSION: Three parallel complex cyst ic appearing masses-. The masses are not particularly suspicious for malignancy on their sonographic appearance. Given their palpable nature, and the indeterminate status regarding any early small forming abscesses here, consider left breast ultrasound guided fine-needle aspiration and/or possible biopsy as needed. The patient was informed of these findings and these recommendations . Our clinical navigator was also informed and will be speaking with the patient. BIRADS 4A low index of suspicious findings-as detailed above. Recommendation: Consider fine-needle aspiration and possible biopsy, if needed using ultrasound guidance as detailed above. Medical Decision Making Medical Decision Making: Initial Plan: * CBC, CMP * Lipase * TV US * Left Breast US * Toradol * Valium Labs unremarkable 13:58 Patient requesting food, drinking [employer] coffee, resting comfortably in stretcher. Reports decreased pain after toradol. 15:16 Patient back from US, pending meds (valium). Eating large subway sandwich, very well appearing. 16:15 Transvaginal ultrasound unremarkable. Breast ultrasound shows complex cystic masses, recommends FNA and/or biosy. Will have patient followup with general surgeon. Will treat with bactrim and warm compresses for possible early abscess formation. Patient reports significantly decreased back pain. Pt is able to ambulate without assistance. Asking for discharge home. States she will followup with general surgeon, OBGYN, and clinic. Case discussed with Dr. Kwok, who agrees with plan of care and disposition. Diagnostic testing results and plan of care discussed with patient, and strict instructions given regarding prescriptions, importance of follow up, and signs to return to Emergency Department, to include worsening pain, abdominal pain, N/V, fever, or any other new/worsening symptoms. Patient verbalizes understanding of discussion. Patient A&Ox3, ambulating with steady gait, stable for discharge home. Disposition Discussed With DrWendy: Starr Kwok Counseled Patient/Family Regarding: Studies Performed, Diagnosis, Need For Fol lowup, Rx Given - Disposition Referrals: [facility] [Outside] Jennie Duque MD [Staff Provider] - Kiera Jose MD [Staff Provider] - Disposition: HOME/ ROUTINE Disposition Time: 16:15 Condition: IMPROVED Additional Instructions: Increase fluids Flexeril every 8 hours as needed for muscle spasm Naproxen daily as needed for back pain Bactrim every 12 hours for 7 days Apply warm compresses 4-5 times daily over breast masses Followup with general surgeon with ultrasound results within 2 days Followup with OBGYN within 2 days Followup with clinic or primary doctor within 2 days Return to ER for any new/worsening symptoms Prescriptions: Cyclobenzaprine [Flexeril] 5 mg PO Q8H PRN #15 tab PRN Reason: spasm Naproxen 500 mg PO DAILY PRN #14 tab PRN Reason: Pain, Moderate (4-7) Sulfamethoxazole/Trimethoprim [Bactrim DS 800 mg-160 mg] 1 tab PO Q12H #14 tab Instructions: Common Breast Problems Forms: [facility] (Botswanan) - Clinical Impression Clinical Impression: Muscle spasm, Breast mass
[2018-06-24 12:28] VITALS: TEMP 97.6
[2018-06-24 13:44] LABS: BASO % 0.5 % (0.0-2.0); EOS # 0.2 K/uL (0.0-0.7); EOS % 2.6 % (0.0-4.0); HEMOGLOBIN 13.4 g/dL (11.0-16.0); LYMPH # 2.2 K/uL (1.0-4.3); LYMPH % 33.1 % (20.0-40.0); MEAN CELL VOLUME 84.1 fL (81.0-99.0); MEAN CORPUSCULAR HEMOGLOBIN 28.3 pg (27.0-31.0); MEAN CORPUSCULAR HGB CONC 33.6 g/dL (33.0-37.0); MONO # 0.4 K/uL (0.0-0.8); MONO % 5.4 % (0.0-10.0); NEUT # 3.8 K/uL (1.8-7.0); NEUT % 58.4 % (50.0-75.0); RBC 4.72 Mil/uL (3.80-5.20); RED CELL DISTRIBUTION WIDTH 13.4 % (11.5-14.5); WHITE BLOOD COUNT 6.6 K/uL (4.8-10.8)
[2018-06-24 13:57] LABS: SQUAMOUS EPITHIAL 8 /hpf (0-5); URINE BACTERIA RARE (<OCC); URINE BILIRUBIN NEGATIVE (NEGATIVE); URINE BLOOD 1+ (NEGATIVE); URINE CLARITY Clear (Clear); URINE COLOR Yellow (YELLOW); URINE GLUCOSE (UA) NORMAL (Normal); URINE LEUKOCYTE ESTERASE NEG Leu/uL (Negative); URINE PROTEIN 1+ mg/dL (NEGATIVE); URINE UROBILINOGEN NORMAL mg/dL (0.2-1.0)
[2018-06-24 14:01] LABS: ALB/GLOB RATIO 1.1 (1.0-2.1); ALBUMIN 4.2 g/dL (3.5-5.0); ALT/SGPT 37 U/L (9-52); AST/SGOT 35 U/L (14-36); BLOOD UREA NITROGEN 14 mg/dL (7-17); CALCIUM 8.5 mg/dl (8.6-10.4); GFR NON-AFRICAN AMERICAN > 60; LIPASE 113 U/L (23-300)
--- NOTE | 2018-06-24 14:34 | US ---
Date of service: 06/24/2018 HISTORY: rule out torsion COMPARISON: None available. TECHNIQUE: Transvaginal pelvic ultrasound FINDINGS: UTERUS: Measures 6.0 x 3.3 x 4.1 cm. Retroverted. ENDOMETRIUM: Measures 9 mm in diameter. CERVIX: No cervical abnormality identified. RIGHT OVARY: Measures 3.5 x 2.4 x 2.8 cm. Blood flow is demonstrated. LEFT OVARY: Measures 3.4 x 2.2 x 3.2 cm. Blood flow is demonstrated. FREE FLUID: No significant free fluid noted. OTHER FINDINGS: None. IMPRESSION: No acute findings identified.
--- NOTE | 2018-06-24 14:42 | US ---
Date of service: 06/24/2018 PROCEDURE: 23-year-old female who presents with recent multiple left breast lumps-. No family history of breast cancer in her mother. No personal history of breast cancer. HISTORY: breast masses, rule out abscess COMPARISON: None TECHNIQUE: Real-time scanning the pertinent breast - targeted to the area(s) of interest was performed . Doppler was applied as needed. FINDINGS: Left breast limited: Patient's areas of left breast palpable concern corresponds to 3 parallel complex cystic appearing circumscribed masses nonvascular non shadowing. No thick rims no thick septations. This stability other contents is not known. There may be minimal skin thickening here present. No axillary lymphadenopathy noted. These 3 complex cystic appearing masses are as follows: Next 1 o'clock 7 cm from the nipple a 1.3 x 3.9 x 1.4 cm complex probably cystic superficial collection is noted. Another complex probably cystic superficial collection is seen also at 7 o'clock 7 cm from the nipple measuring 7 x 3 x 9 mm. Another complex probably cystic superficial collection is seen at 9 o'clock 8 cm from the nipple measuring 6 x 3 x 9 mm. I did not have occasion opportunity to physically examined the patient at this setting. IMPRESSION: Three parallel complex cystic appearing masses-. The masses are not particularly suspicious for malignancy on their sonographic appearance. Given their palpable nature, and the indeterminate status regarding any early small forming abscesses here, consider left breast ultrasound guided fine-needle aspiration and/or possible biopsy as needed. The patient was informed of these findings and these recommendations . Our clinical navigator was also informed and will be speaking with the patient. BIRADS 4A low index of suspicious findings-as detailed above. Recommendation: Consider fine-needle aspiration and possible biopsy, if needed using ultrasound guidance as detailed above.
[2018-06-24] MEDS ORDERED: Tmp-Smz 800 mg-160 mg DS Tab ONE (16:14)
[2018-06-24] MEDS: Tmp-Smz 800 mg-160 mg DS Tab PO STA (16:15)
[2018-06-24 16:59] VITALS: BP 112/72; PULSE 68; RESP 18; O2SAT 97
== END 2018-06-24 16:59 | disposition home or self-care (01) ==
LOC: C.ER 12:10
DX: M62.838 Other muscle spasm (principal); N63.20 Unspecified lump in the left breast, unspecified quadrant
CPT/HCPCS: 76642; 76830; 80053; 81001; 83690; 85025; 87086; 96374; 99285; J1885

== ENCOUNTER 2018-07-06 21:16 | Emergency (ER) | payer MEDICAID ==
[2018-07-06 21:16] VITALS: BMI 32.9
[2018-07-06 21:37] VITALS: BP 136/92; PULSE 69; TEMP 98.3; O2SAT 96
--- NOTE | 2018-07-06 22:22 | C.PDOC ---
History Of Present Illness patient c/o draining lump under her left breast x 2 days. she states she was seen recently for the same bumps under breast but was told they were not ready for drainage at that time. she states two of the areas have gotten smaller but the one in the center has now been draining some clear fluid. she denies any fever, chills, or redness. Chief Complaint (Nursing): Abnormal Skin Integrity Past Medical History Vital Signs: Last Vital Signs Temp 98.3 F 07/06/18 21:29 Pulse 69 07/06/18 21:29 Resp 18 07/06/18 21:29 BP 136/92 H 07/06/18 21:29 Pulse Ox 96 07/06/18 21:29 - Medical History PMH: Anxiety, Depression Denies: Diabetes, Hepatitis, HIV, HTN, Seizures, Sexually Transmitted Disease Surgical History: No Surg Hx - [facility] Procedures GROUP PSYCHOTHERAPY (01/02/18) INDIVIDUAL PSYCHOTHERAPY, COGNITIVE-BEHAVIORAL (01/02/18) INDIVIDUAL PSYCHOTHERAPY, SUPPORTIVE (01/02/18) Family History: States: Unknown Family Hx - Social History Hx Alcohol Use: No Hx Substance Use: No - Immunization History Hx Tetanus Toxoid Vaccination: No Hx Influenza Vaccination: Yes Hx Pneumococcal Vaccination: No Review Of Systems Constitutional: Negative for: Fever, Chills Eyes: Negative for: Pain ENT: Negative for: Ear Discharge Cardiovascular: Negative for: Chest Pain Respiratory: Negative for: Cough, Shortness of Breath Gastrointestinal: Negative for: Nausea, Vomiting Genitourinary: Negative for: Dysuria Skin: Positive for: Lesions Neurological: Negative for: Weakness Physical Exam - Physical Exam Appears: Well, Non-toxic Skin: Other (clear drainage from small abscess under left breast without surrounding erythema or induration) Head: Atraumatic, Normacephalic Eye(s): bilateral: Normal Inspection, PERRL, EOMI Throat: Normal Neck: Normal ROM, Trachea Midline Lymphatic: Axilla Node Tenderness (without enlargement) Chest: Symmetrical Cardiovascular: Rhythm Regular Respiratory: No Accessory Muscle Use Gastrointestinal/Abdominal: Soft, No Distention Extremity: Normal ROM, No Tenderness Neurological/Psych: Oriented x3 ED Course And Treatment O2 Sat by Pulse Oximetry: 96 Medical Decision Making Medical Decision Making: small draining abscess without associated cellultitis. she does not require abx at this time. Disposition Counseled Patient/Family Regarding: Diagnosis, Need For Followup - Disposition Disposition: HOME/ ROUTINE Disposition Time: 22:20 Condition: STABLE Instructions: Skin Abscess Forms: [facility] (Stateless), General Discharge Instructions - Clinical Impression Clinical Impression: Abscess
[2018-07-06 22:42] VITALS: RESP 20
== END 2018-07-06 22:41 | disposition home or self-care (01) ==
LOC: C.ER 21:16
DX: N61.1 Abscess of the breast and nipple (principal)

== ENCOUNTER 2018-07-22 02:24 | Emergency (ER) | payer MEDICAID ==
[2018-07-22 02:24] VITALS: BMI 32.9
[2018-07-22 02:46] VITALS: RESP 16; O2SAT 98
[2018-07-22] MEDS ORDERED: Albuterol-Ipratrop 3 mg / 0.5 (3 ml) UD INH STA (03:13)
[2018-07-22] MEDS ORDERED: Albuterol-Ipratrop 3 mg / 0.5 (3 ml) UD ONE (03:18)
--- NOTE | 2018-07-22 03:21 | C.PDOC ---
History Of Present Illness 23 year old female presents to the ED for evaluation of subjective fever, non- productive cough, and throat pain which began a couple days ago. Patient also reports that her chest hurts when she breathes. She took one Amoxicillin without relief. Otherwise, patient denies nausea, vomiting, diarrhea, myalgias. . Time Seen by Provider: 07/22/18 02:49 Chief Complaint (Nursing): Cough, Cold, Congestion History Per: Patient History/Exam Limitations: no limitations Onset/Duration Of Symptoms: Days Current Symptoms Are (Timing): Still Present Associated Symptoms: Fever, Sore Throat, Cough. denies: Sputum, Nausea, Vomiting, Diarrhea Past Medical History Reviewed: Historical Data, Nursing Documentation, Vital Signs Vital Signs: Last Vital Signs Temp 98.7 F 07/22/18 02:35 Pulse 92 H 07/22/18 02:35 Resp 16 07/22/18 03:03 BP 140/91 H 07/22/18 02:35 Pulse Ox 98 07/22/18 03:03 - Medical History PMH: Anxiety, Depression Denies: Diabetes, Hepatitis, HIV, HTN, Seizures, Sexually Transmitted Disease Surgical History: No Surg Hx - [facility] Procedures GROUP PSYCHOTHERAPY (01/02/18) INDIVIDUAL PSYCHOTHERAPY, COGNITIVE-BEHAVIORAL (01/02/18) INDIVIDUAL PSYCHOTHERAPY, SUPPORTIVE (01/02/18) Family History: States: Unknown Family Hx - Social History Hx Alcohol Use: No Hx Substance Use: No - Immunization History Hx Tetanus Toxoid Vaccination: No Hx Influenza Vaccination: Yes Hx Pneumococcal Vaccination: No Review Of Systems Constitutional: Positive for: Fever ENT: Positive for: Throat Pain Cardiovascular: Positive for: Other (chest pain with breathing ) Respiratory: Positive for: Cough. Negative for: Sputum Gastrointestinal: Negative for: Nausea, Vomiting, Diarrhea Physical Exam - Physical Exam Appears: Non-toxic, No Acute Distress, Other (uncomfortable ) Skin: Normal Color, Warm, Dry Eye(s): bilateral: Normal Inspection Ear(s): Bilateral: TM Obscured By Wax Nose: Normal, No Discharge Oral Mucosa: Moist Throat: Normal, No Erythema, No Exudate Neck: Supple Chest: Symmetrical, No Deformity, No Tenderness Cardiovascular: Rhythm Regular, No Murmur Respiratory: No Rales, No Rhonchi, Wheezing (expiratory ) Extremity: Normal ROM, Capillary Refill (less than 2 seconds ) Neurological/Psych: Oriented x3, Normal Speech, Normal Cognition ED Course And Treatment O2 Sat by Pulse Oximetry: 98 Pulse Ox Interpretation: Normal Medical Decision Making Medical Decision Making: Progress: CXR ordered and reviewed. Albuterol INH and Motrin PO given. On reassessment, patient is resting comfortably, showing no signs of respiratory distress and reports an improvement in her symptoms. Awaiting CXR results. [id number] cxr reviewed by me, no acute infiltrate noted. d/c home with claritin and albuterol mdi with motrin and pmd f/u Disposition Counseled Patient/Family Regarding: Studies Performed, Diagnosis, Need For Followup, Rx Given - Disposition [facility]errals: [facility] [[facility]] [facility] [Outside] Disposition: HOME/ ROUTINE Disposition Time: 04:46 Condition: IMPROVED Additional Instructions: Drink increased fluids. Avoid dairy for a few days- makes sputum thicker. Take Tylenol ro MOTrin for pain or fever. Follow up with your doctor or in medical clinic in a few days. Return for any worsening symptoms to ER. Prescriptions: Albuterol HFA [Ventolin HFA 90 mcg/actuation (8 g)] 2 puff IH Q6 #1 inhaler Ibuprofen [Motrin] 600 mg PO TID #30 tab Instructions: Viral Upper Respiratory Infection, Adult (DC) Forms: [facility] (Maori), General Discharge Instructions - Clinical Impression Clinical Impression: Upper respiratory infection - PA / HARNESS INSPECTOR / Resident Statement MD/DO has reviewed & agrees with the documentation as recorded. - Scribe Statement The provider has reviewed the documentation as recorded by the Scribe (Consuelo Saez) All medical record entries made by the Scribe were at my direction and personally dictated by me. I have reviewed the chart and agree that the record accurately reflects my personal performance of the history, physical exam, medical decision making, and the department course for this patient. I have also personally directed, reviewed, and agree with the discharge instructions and disposition.
[2018-07-22 04:43] VITALS: BP 100/67; PULSE 84; TEMP 98.5
--- NOTE | 2018-07-22 08:07 | RAD ---
Date of service: 07/22/2018 HISTORY: cough fever COMPARISON: 03/01/2018 TECHNIQUE: Chest PA and lateral FINDINGS: LUNGS: No active pulmonary disease. PLEURA: No significant pleural effusion identified. No pneumothorax apparent. CARDIOVASCULAR: No aortic atherosclerotic calcification present. Normal cardiac size. No pulmonary vascular congestion. OSSEOUS STRUCTURES: No significant abnormalities. VISUALIZED UPPER ABDOMEN: Normal. OTHER FINDINGS: None. IMPRESSION: No active disease.
== END 2018-07-22 05:04 | disposition home or self-care (01) ==
LOC: C.ER 02:24
DX: J06.9 Acute upper respiratory infection, unspecified (principal)

== ENCOUNTER 2018-09-03 18:02 | Emergency (ER) | payer OTHER, MEDICAID | END 2018-09-03 21:24 | disposition home or self-care (01) | LOC: C.ER 18:02 ==

== ENCOUNTER 2018-09-09 09:28 | Emergency (ER) | payer OTHER | END 2018-09-09 12:10 | disposition home or self-care (01) | LOC: C.ER 09:28 ==